=== PATIENT | female | born 1990 | race Caucasian/White ===

== ENCOUNTER 2017-11-16 05:43 | Day surgery (SDC) | payer BC, SELFPAY ==
--- NOTE | 2017-11-10 09:54 | EKG12_ITS ---
Test Reason : PRE OP Blood Pressure : / mmHG Vent. Rate : 066 BPM Atrial Rate : 066 BPM P-R Int : 144 ms QRS Dur : 090 ms QT Int : 382 ms P-R-T Axes : 050 081 057 degrees QTc Int : 400 ms Normal sinus rhythm Normal ECG Confirmed by CAROLYNE HERNANDEZ ([id number]), index editor FESTUS BUSTILLOS ([id number]) on 11/12/2017 12:11:00 PM Referred By: Arnoldo Simon Confirmed By:CAROLYNE HERNANDEZ
[2017-11-10 10:57] LABS: Hematocrit 40.6 % (37-47); Mean Corp Hgb Conc 34.5 g/gl (32-36); Mean Corpuscular Hgb 31.9 pg (27.0-32.0); Mean Corpuscular Volume 92.5 fL (81-99); Mean Platelet Vol. 10.9 fl (6.2-12.0); Platelet Count 216 K/mm3 (150-450); RBC Distribution Width CV 12.9 % (11.6-14.6); RBC Distribution Width SD 42.8 fl (35.1-43.9); Red Blood Count 4.39 M/mm3 (4.2-5.4); White Blood Count 9.2 K/mm3 (4.4-11.0)
[2017-11-10 10:58] LABS: Scan Indicated on CBC? Y/N NO
[2017-11-10 11:03] LABS: International Normalized Ratio 1.1; Prothrombin Time (Protime)PT. 13.8 SECONDS (11.7-14.9)
[2017-11-10 11:04] LABS: Partial Thromboplast Time 28.6 Seconds (24.1-36.2)
[2017-11-10 11:39] LABS: AST(SGOT) 16 U/L (15-37); Alanine Aminotransfer ALT/SGPT 32 U/L (12-78); Albumin, Serum 4.1 g/dL (3.4-5.0); Alkaline Phosphatase 47 U/L (45-117); Anion Gap 8 (5-15); BUN 12 mg/dL (7-18); BUN/Creat Ratio 18.8 RATIO (10-20); Bilirubin, Direct 0.11 mg/dL (0.00-0.30); Calcium,Total 8.8 mg/dL (8.5-10.1); Chloride 104 mmol/L (98-107); Creatinine, Serum 0.64 mg/dL (0.55-1.02); EST Glomerular Filtration Rate 119 mL/min (>60); Est Glom Filt Rate - Afr Amer 144 mL/min (>60); Globulin 3.2 g/dL (2.2-4.2); Glucose 102 mg/dL (70-110); Potassium 3.6 mmol/L (3.5-5.1); Protein, Total 7.3 g/dL (6.4-8.2); Sodium Level 139 mmol/L (136-145)
[2017-11-16] VITALS (7 sets, daily range): BP systolic 110–118; BP diastolic 59–77; PULSE 71–97; RESP 16–18; TEMP 36.6–37.4; O2SAT 96–99; BMI 25.0
[2017-11-16 06:10] LABS: Internal QC Validated? YES +Cl - CLEAR BKGD; Pregnancy, Urine Negative Negative
--- NOTE | 2017-11-16 07:09 | PCM.DC.GS ---
Discharge Diet: Light diet - advance as tolerated - if you have questions about your diet instructions, please talk to you doctor. Discharge Activity: May Not Drive - for 1 week or while taking narcotic pain medicine. May shower in (days): 1 Lifting Restrictions: 10 pounds Call your doctor if your incision/area has: Continuous Slow Oozing, Sudden Increased Bleeding, Increased Pain/ Swelling, Increased Redness, Foul Smelling Discharge Call your doctor if you observe: Fever of 101 or Higher Suture Line Care: Avoid Pulling/Pushing, Avoid Pinching/Bending Additional Dressing/Incision Instructions:: Change or remove dressing in 4 days. Leave steri-strips in place for 1 week. Allergies/Adverse Reactions: Allergies No Known Allergies Allergy (Verified 11/09/17 13:00) Medications to take at Discharge Hydrocodone Bitart/Apap 5-325 [[place] 5MG-325MG] 1 tablet PO Q6H PRN PRN #10 tablet 11/16/17 The following prescriptions were given: Hydrocodone Bitart/Apap 5-325 [[place] 5MG-325MG] 1 tablet PO Q6H PRN PRN #10 tablet PRN Reason: Pain Primary Care Physician: Care Physician,No Primary [Primary Care Provider] - Please Follow Up With: Arnoldo Simon MD - [phone] When: Call to make an appointment to be seen in about 10 days.
[2017-11-16] MEDS: Cefazolin 2 GM in 0.9% Normal Saline 100 ML IV (07:12)
--- NOTE | 2017-11-16 07:30 | MISC_PTH ---
PATIENT: MARVA BANERJEE LOC: [facility] [place] U#:[id number] AGE/SX: 27/F ROOM: RE11/16/[address]: Dr. Arnoldo Simon MD : 1990 BED: DIS: 11/16/2017 SPEC #: [id number] RECD: 11/16/17 10:05 STATUS: KARIN GLEZ #: [id number] CAMILO: 11/16/17 07:[address]: Arnoldo Simon DEPT: SURGICAL PATHOLOGY RECD BY: Hernando Goodwin ENTERED: 11/16/17 12:31 SP [facility]: No Primary Care Phys Tissues: Ligament, NOS Procedures: Surgery Specimen Level IV HEADER OPERATION: Right inguinal hernia repair with mesh PRE-OP DIAGNOSIS: Right inguinal hernia without obstruction or gangrene TISSUE SUBMITTED: Round ligament tissue MICROSCOPIC DIAGNOSIS Round ligament, excision: Fibrous tissue with associated organizing blood clot. AM:jr 11/17/17 MICROSCOPIC DESCRIPTION Slides are reviewed. GROSS DESCRIPTION Received in fixative is one container labeled with the patient's name and designated round ligament tissue. The specimen consists of an elongated fragment of reddish-champion soft tissue measuring 1.2 x 0.2 x 0.1 cm. The specimen is totally submitted in one cassette. / AM:jr 11/16/17 TC:5 CPT: 12214
--- NOTE | 2017-11-16 08:24 | PCM.OPRPT ---
Problem List (1) Inguinal hernia Status: Acute Qualifiers: Obstruction and gangrene presence: without obstruction or gangrene Laterality: unilateral Recurrence: non-recurrent Qualified Code(s): K40.90 - Unilateral inguinal hernia, without obstruction or gangrene, not specified as recurrent Report of Operation Date of Procedure: 11/16/17 Pre-Operative Diagnosis: Right inguinal hernia Post-Operative Diagnosis: Indirect right inguinal hernia Surgery/Procedure Performed:: Hari right inguinal herniorrhaphy Description of Surgical Findings:: Timeout and informed consent was obtained. 27-year-old female was taken out from placement table underwent general anesthesia. Ancef 2 g given intravenously preoperatively. The right groin was sterilely prepped and draped. 1% lidocaine mixed 50-50 with 0.5% Marcaine was used as local anesthetic. A total 20 cc was used. Local was instilled. Transverse incision made in the right groin. Sharp dissection was carried down through the substance tissue. The external oblique identified and incised along its fascia. The inguinal nerve identified and protected. The round ligament was identified. From the transversalis fascia pubic tubercle. It is dissected free the internal ring. Further dissection revealed an indirect inguinal hernia. I dissected free the inguinal nerve. I ligated the round ligament distally with 2-0 Vicryl. Approximated the same and then dissected free the internal ring inverted the round ligament tissue. I used a 3-0 Ethibond starting at the pubic tubercle running the transversalis fascia to itself so as to obliterate the internal ring. Then used a piece of Bard mesh appreciate monofilament polypropylene. Preshaped H[employer]Image. Lot number [id number]. Reference #[id number]. Expiry date 07/16/2022. I trimmed it to size. I then placed around the internal ring and secured its to itself with 3-0 Ethibond. I secured it to the pubic tubercle shelving edge of Poupart's and inguinal nerve ligament with interrupted 3-0 Ethibond. There was very nice coverage of the area. I approximated the external oblique with a running 2-0 Vicryl. Skin edges approximated with running septic or 4-0 Monocryl. Steri-Strips Telfa and OpSite dressings applied. Sponge instrument and needle counts were reported the surgeon for correct. Blood loss was minimal. There was a small amount of darkish debris that came off the round ligament. I did submit that for analysis looking to see if it perhaps represented endometriosis. Specimens included this small portion of round ligament. Drains none. Blood loss minimal. Arnoldo Simon M.D., F.A.C.S.
== END 2017-11-16 10:11 | disposition home or self-care (01) ==
LOC: SDC 05:43 → AC 05:44
PROVIDERS: Anesthesiology; Visit Provider Surgery
PROC: (CPT 49505; principal; 2017-11-16 07:15)
DX: K40.90 Unilateral inguinal hernia, without obstruction or gangrene, not specified as recurrent (principal); K21.9 Gastro-esophageal reflux disease without esophagitis; K44.9 Diaphragmatic hernia without obstruction or gangrene; F17.210 Nicotine dependence, cigarettes, uncomplicated
CPT/HCPCS: 49505; 36415; 80048; 80076; 81025; 85027; 85610; 85730; 88305; 93005; J7120; C1781; J2405

== ENCOUNTER → 2018-01-08 09:23 | Outpatient (CLI) | payer BC, SELFPAY ==
[2018-01-08 10:31] LABS: Anion Gap 6 (5-15); BUN 20 mg/dL (7-18); BUN/Creat Ratio 36.5 RATIO (10-20); Calcium,Total 8.4 mg/dL (8.5-10.1); Chloride 107 mmol/L (98-107); Cholesterol 123 mg/dL (200); Creatinine, Serum 0.55 mg/dL (0.55-1.02); EST Glomerular Filtration Rate 142 mL/min (>60); Est Glom Filt Rate - Afr Amer 172 mL/min (>60); Glucose 89 mg/dL (74-106); High Density Lipoprotein 55 mg/dL; Potassium 4.1 mmol/L (3.5-5.1); Sodium Level 140 mmol/L (136-145); Triglycerides 38 mg/dL; Very Low Density Lipoprotein 8 mg/dL (5-40)
== END ==
PROVIDERS: Family Provider Family Medicine; PCP Family Medicine; Visit Provider Family Medicine
DX: Z00.00 Encounter for general adult medical examination without abnormal findings (principal)
CPT/HCPCS: 36415; 80048; 80061

== ENCOUNTER → 2018-01-18 12:23 | Outpatient (CLI) | payer BC, SELFPAY ==
--- NOTE | 2018-01-18 13:01 | CT_ITS ---
STUDY: CT ABDOMEN AND PELVIS WITH CONTRAST REASON FOR EXAM: Female, 27 years old. RT GROIN PAIN X 2 DAYS, RT INGUINAL HERNIA REPAIR 11/16/17, HAS IUD RADIATION DOSAGE (If Supplied By Facility): CTDIvol = ( 9.93 ) mGy, DLP = ( 485.69 ) mGycm TECHNIQUE: Transaxial images were obtained from the dome of the diaphragm to the symphysis pubis without oral contrast. 100 ml of Isovue 300 contrast was administered. Sagittal and coronal images were reconstructed. Individualized dose optimization techniques were used for this CT. COMPARISON: None. FINDINGS: The visualized lung bases are unremarkable. The visualized portions of the heart are within normal limits. Normal liver. Normal gallbladder and extrahepatic biliary system. Normal spleen. Normal pancreas. Normal bilateral adrenal glands. Normal right kidney. Normal left kidney. Normal visualized stomach. Normal small intestine. Normal colon. The appendix is visualized and appears normal. Normal abdominal aorta. Normal inferior vena cava. Normal retroperitoneum. Normal urinary bladder. Normal abdominal wall. Normal osseous structures. CT/Abdomen/Pelvis WITH Contrast IMPRESSION: Normal enhanced CT of the abdomen and pelvis. Electronically Signed: Adalberto Sandoval MD at 15:35 EDT Tel , Service support ,
[2018-01-18 13:16] LABS: Absolute Lymphocyte Count 1.87 X10^3/ul (0.83-4.51); Absolute Neutrophil Count 4.7 X10^3/uL (2.0-7.7); Basophil# 0.01 X10^3/uL; Basophil% 0.1 % (0-1); Eosinophil# 0.21 X10^3/uL; Eosinophils% 2.7 % (0-5); Hematocrit 40.7 % (37-47); Hemoglobin 13.6 g/dl (12.0-15.0); Lymphocyte # 1.87 X10^3/ul (4.0); Lymphocyte % 24.3 % (19-41); Mean Corp Hgb Conc 33.4 g/gl (32-36); Mean Corpuscular Hgb 31.4 pg (27.0-32.0); Mean Platelet Vol. 10.7 fl (6.2-12.0); Monocyte% 11.7 % (0-10); Neutrophil # 4.69 X10^3/uL (2.7-7.7); Neutrophil % 61.1 % (47-70); Platelet Count 178 K/mm3 (150-450); RBC Distribution Width CV 12.5 % (11.6-14.6); RBC Distribution Width SD 42.1 fl (35.1-43.9); Red Blood Count 4.33 M/mm3 (4.2-5.4); White Blood Count 7.7 K/mm3 (4.4-11.0)
[2018-01-18 13:20] LABS: POSITIVE COUNT NO; POSITIVE DIFFERENTIAL NO; POSITIVE MORPHOLOGY NO
[2018-01-18 13:50] LABS: ALB/GLOB Ratio 1.3 RATIO (0.9-2.4); AST(SGOT) 15 U/L (15-37); Alanine Aminotransfer ALT/SGPT 18 U/L (13-56); Albumin, Serum 3.9 g/dL (3.2-5.0); Alkaline Phosphatase 35 U/L (45-117); Anion Gap 7 (5-15); BUN 15 mg/dL (7-18); BUN/Creat Ratio 28.6 RATIO (10-20); Calcium,Total 8.5 mg/dL (8.5-10.1); Chloride 108 mmol/L (98-107); Creatinine, Serum 0.52 mg/dL (0.55-1.02); EST Glomerular Filtration Rate 149 mL/min (>60); Est Glom Filt Rate - Afr Amer 181 mL/min (>60); Globulin 2.9 g/dL (2.2-4.2); Glucose 102 mg/dL (74-106); Potassium 4.3 mmol/L (3.5-5.1); Protein, Total 6.8 g/dL (6.4-8.2); Sodium Level 142 mmol/L (136-145)
== END ==
PROVIDERS: Family Provider Family Medicine; PCP Family Medicine; Visit Provider Family Medicine
DX: R10.9 Unspecified abdominal pain (principal)
CPT/HCPCS: 36415; 74177; 80053; 85025; Q9967

== ENCOUNTER → 2018-09-24 11:06 | Outpatient (CLI) | payer OTHER, SELFPAY ==
[2017-11-16 06:12] VITALS: BMI 25.0
[2018-09-24 12:36] LABS: Cholesterol 121 mg/dL (200); Glucose 77 mg/dL (74-106); High Density Lipoprotein 43 mg/dL; Triglycerides 63 mg/dL; Very Low Density Lipoprotein 13 mg/dL (5-40)
== END ==
PROVIDERS: Family Provider Family Medicine; PCP Family Medicine; Visit Provider Family Medicine
DX: Z00.00 Encounter for general adult medical examination without abnormal findings (principal)
CPT/HCPCS: 36415; 80061; 82947

== ENCOUNTER → 2019-06-17 14:07 | Outpatient (CLI) | payer OTHER, SELFPAY ==
[2019-06-17 16:16] LABS: CRP < 2.90 mg/L (0.0-3.0)
[2019-06-17 17:32] LABS: Hemoglobin 13.5 g/dL (12.0-15.0); Mean Corp Hgb Conc 32.9 g/dL (32-36); Mean Corpuscular Volume 94.3 fL (81-99); Mean Platelet Vol. 11.7 fl (6.2-12.0); Platelet Count 192 K/mm3 (150-450); RBC Distribution Width CV 12.1 % (11.6-14.6); RBC Distribution Width SD 42.4 fl (35.1-43.9); Red Blood Count 4.35 M/mm3 (4.2-5.4); White Blood Count 8.1 K/mm3 (4.4-11.0)
[2019-06-17 18:18] LABS: Erythrocyte Sedimentation Rate 3 mm/hr (0-20)
[2019-06-21 16:08] LABS: Endomysial Antibody IgA Negative (Negative); Immunoglobulin A 235 mg/dL (87-352); t-Transglutaminase IgA <2 U/mL (0-3)
== END ==
PROVIDERS: Family Provider Family Medicine; PCP Family Medicine; Referring Provider Internal Medicine Gastroenterology; Visit Provider Internal Medicine Gastroenterology
DX: R10.9 Unspecified abdominal pain (principal)
CPT/HCPCS: 36415; 82784; 83516; 85027; 85652; 86140; 86255

== ENCOUNTER → 2019-07-05 09:51 | Outpatient (CLI) | payer OTHER, SELFPAY ==
[2017-11-16 06:12] VITALS: BMI 25.0
--- NOTE | 2019-07-05 10:00 | RAD_ITS ---
PROCEDURE: SMALL BOWEL SERIES DATE OF EXAMINATION: July 05, 2019. INDICATION: Female, 29 years old. Constipation and diarrhea intermittently. PHYSICIAN: Jose Carlos Aviles M.D. FLUOROSCOPY TIME (if supplied): (0:13) minutes/seconds TECHNIQUE: Radiographic and fluoroscopic images were taken of the small intestine following the ingestion of barium. COMPARISON: None. FINDINGS: A preliminary supine KUB was obtained. There is an unremarkable bowel gas pattern. Fecal material is present throughout the colon. IUD is present within the pelvis. The lung bases are unremarkable. The osseous structures are normal. The patient orally ingested approximately 12 ounces of thin barium Normal visualized fundus, body, and antrum of the stomach. Normal duodenal bulb, C-loop, and proximal jejunum. Normal visualized mucosal folds of the jejunum and ileum. There are no demonstrated dilatations, strictures, or masses of the small intestine. There is no mass displacement of the loops of small intestine. There is a normal motor pattern with barium reaching the colon within approximately 30 minutes. Spot films under fluoroscopic observation demonstrated a normal terminal ileum and ileocecal valve. RAD/Small Bowel Series Only IMPRESSION: Normal small bowel series. Electronically Signed: Jose Carlos Aviles, at 9:39 EDT , Service support ,
== END ==
PROVIDERS: Family Provider Family Medicine; PCP Family Medicine; Referring Provider Internal Medicine Gastroenterology; Visit Provider Internal Medicine Gastroenterology
DX: R10.9 Unspecified abdominal pain (principal)
CPT/HCPCS: 74250

== ENCOUNTER → 2019-08-19 09:38 | Outpatient (CLI) | payer OTHER, SELFPAY ==
[2019-08-12 09:16] VITALS: BMI 25.0
--- NOTE | 2019-08-19 09:40 | CT_ITS ---
STUDY: CT ABDOMEN AND PELVIS WITH CONTRAST REASON FOR EXAM: Female, 29 years old. Abdominal pain. Change in bowel pattern. RADIATION DOSAGE (If Supplied By Facility): CTDIvol = ( 16.49 ) mGy, DLP = ( 633.62 ) mGycm TECHNIQUE: Transaxial images were obtained from the dome of the diaphragm to the symphysis pubis with oral contrast. Oral and amp;amp; IV Readi-CAT and amp;amp; 100mL Isovue-300 100 was administered. Sagittal and coronal images were reconstructed. Individualized dose optimization techniques were used for this CT. COMPARISON: Comparison is made with prior examination dated January 18, 2018. FINDINGS: The visualized lung bases are unremarkable. The visualized portions of the heart are within normal limits. Normal liver. Normal gallbladder and extrahepatic biliary system. Normal spleen. Normal pancreas. Normal bilateral adrenal glands. Normal right kidney. Normal left kidney. There is a small hiatal hernia. Normal small intestine. Normal colon. The appendix is visualized and appears normal. Normal abdominal aorta. Normal inferior vena cava. Normal retroperitoneum. Normal urinary bladder. Small follicles are seen in the left ovary. An IUD is seen within the uterus. Normal abdominal wall. Normal osseous structures. CT/Abdomen/Pelvis WITH Contrast IMPRESSION: Small follicles are seen within the left ovary. IUD within the uterus. Electronically Signed: Jose Carlos Aviles, at 14:38 EDT , Service support ,
== END ==
PROVIDERS: Family Provider Family Medicine; PCP Family Medicine; Referring Provider Surgery; Visit Provider Surgery
DX: R19.4 Change in bowel habit (principal); R10.9 Unspecified abdominal pain
CPT/HCPCS: 74177; Q9967

== ENCOUNTER → 2019-10-11 09:02 | Outpatient (CLI) | payer OTHER, SELFPAY ==
[2019-08-26 14:06] VITALS: BMI 25.0
[2019-10-11 10:30] LABS: Anion Gap 3 (5-15); BUN 14 mg/dL (7-18); BUN/Creat Ratio 21.6 RATIO (10-20); Calcium,Total 8.6 mg/dL (8.5-10.1); Chloride 106 mmol/L (98-107); Cholesterol 125 mg/dL (200); Creatinine, Serum 0.65 mg/dL (0.55-1.02); EST Glomerular Filtration Rate 115 mL/min (>60); Est Glom Filt Rate - Afr Amer 140 mL/min (>60); Glucose 91 mg/dL (74-106); High Density Lipoprotein 54 mg/dL; Potassium 4.4 mmol/L (3.5-5.1); Sodium Level 138 mmol/L (136-145); Triglycerides 61 mg/dL; Very Low Density Lipoprotein 12 mg/dL (5-40)
== END ==
PROVIDERS: Family Provider Family Medicine; PCP Family Medicine; Visit Provider Family Medicine
DX: Z00.00 Encounter for general adult medical examination without abnormal findings (principal)
CPT/HCPCS: 36415; 80048; 80061

== ENCOUNTER 2020-03-11 11:33 | Emergency (ER) | payer OTHER, SELFPAY ==
[2019-08-26 14:06] VITALS: BMI 25.0
[2020-03-11 11:34] VITALS: BP 142/94; PULSE 95; RESP 22; TEMP 34.9; O2SAT 100; BMI 28.8
--- NOTE | 2020-03-11 11:50 | RAD_ITS ---
STUDY: X-RAY CHEST REASON FOR EXAM: Female, 29 years old. COUGH, SOB, CHEST TIGHTNESS X 1 WEEK -- pt 8 weeks , TECHNIQUE: Single AP portable view of the chest. COMPARISON: None. FINDINGS: There are monitoring devices. The lungs are clear and expanded. There is no demonstrated pleural abnormality. Normal size heart. Normal mediastinum and heather. Normal visualized pulmonary arteries. Normal visualized aortic arch and descending thoracic aorta. Normal visualized thoracic spine. Normal visualized ribs, clavicles, and shoulders. There is no demonstrated abnormality of the visualized soft tissue structures of the upper abdomen. RAD/Chest 1 View (Portable) IMPRESSION: Normal x-ray examination of the chest. Electronically Signed: Rad Damon MD at 13:00 EDT , Service support ,
--- NOTE | 2020-03-11 11:50 | EKG12_ITS ---
Test Reason : Blood Pressure : / mmHG Vent. Rate : 087 BPM Atrial Rate : 087 BPM P-R Int : 182 ms QRS Dur : 084 ms QT Int : 376 ms P-R-T Axes : 046 053 026 degrees QTc Int : 452 ms Normal sinus rhythm with sinus arrhythmia Normal ECG Confirmed by VINI NOLASCO, LUC ([id number]), publishing editor FESTUS BUSTILLOS ([id number]) on 03/13/2020 3:18:55 PM Referred By: LANA Confirmed By:LUC MARTINI MD
--- NOTE | 2020-03-11 11:57 | ED.DCSUM_ITS ---
History of Present Illness Chief Complaint: Shortness of Breath Informant: Patient Onset: Days - 2 days Current Severity: Mild Maximum Severity: Mild Narrative: Patient presents with 2-day history of shortness of breath and cough. She states her lungs feel tight. She is currently 8 weeks . 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 She does report a couple positive Covid patients they have had in the last several weeks. She denies fever or chills. She does not feel as if she is wheezing. - Past Medical History (1) GERD (gastroesophageal reflux disease) Status: Chronic (2) S/P right inguinal hernia repair Status: Chronic Comment: 11/16/17 Past Medical History - Allergies and Home Meds Allergies/Adverse Reactions: Allergies No Known Allergies Allergy (Verified 03/11/20 11:36) Primary Care Physician: Quinton Blackburn MD [Primary Care Provider] - Prior records reviewed: Yes Lives: With Family Smoking Status: Current every day smoker Review of Systems General: Denies: Chills, Fever Eyes: Denies: Visual changes - bilaterally ENT: Denies: Bilateral ear pain Cardiovascular: Reports: - - Chest feels tight. Denies: Chest pain Respiratory: Reports: Dyspnea, Cough. Denies: Sputum Gastrointestinal: Reports: Nausea - Some nausea associated with her . Denies: Abdominal pain, Vomiting Genitourinary: Denies: Dysuria Musculoskeletal: Denies: Swelling, Extremity Pain Skin: Denies: Rash Neurological: Denies: Headache Hematologic: Denies: Easy bruising, Easy bleeding Allergy: Denies: Uticaria Physical Exam Vital Signs/Narrative: Vital Signs Temp Pulse Resp BP Pulse Ox 03/11/20 11:34 94.9 F L 95 22 H 142/94 H 100 Inital Vital Signs reviewed: Yes General: Well nourished, Well developed Head: Normocephalic ENT: Moist mucous membranes Neck: Supple Cardiovascular: Regular rate, Regular rhythm Respiratory: No distress, CTA bilaterally Abdomen: Soft, Nontender Extremities: Nontender Skin: Normal color, No rash Neurological: Alert, Oriented x3 Psychological: Normal affect Diagnostic/Tx/Re-eval Impressions Chest X-Ray 03/11/20 11:50 IMPRESSION: Normal x-ray examination of the chest. Electronically Signed: Rad Damon MD at 13:00 EDT , Service support , 03/11/20 11:50 Chest 1 View (Portable) [RAD] Stat Laboratory Results 03/11/20 03/11/20 03/11/20 12:05 12:05 12:05 WBC 10.8 RBC 4.12 L Hgb 12.9 Hct 38.4 MCV 93.2 MCH 31.3 MCHC 33.6 RDW Std Deviation 41.1 RDW Coeff of Beulah 12.0 Plt Count 163 MPV 10.3 Immature Gran % (Auto) 0.400 Neut % (Auto) 76.2 H Lymph % (Auto) 14.6 L [place] % (Auto) 7.4 Eos % (Auto) 1.2 Baso % (Auto) 0.2 Absolute Neuts (auto) 8.2 H Absolute Lymphs (auto) 1.57 Nucleated RBC % 0 D-Dimer Quant (PE/DVT) 0.33 Sodium 138 Potassium 3.8 Chloride 109 H Carbon Dioxide 24.0 Anion Gap 5 BUN 9 Creatinine 0.44 L Estim Creat Clear Calc 164.38 Est GFR (MDRD) Af Amer 215 Est GFR (MDRD) Non-Af 178 BUN/Creatinine Ratio 20.2 H Glucose 120 H Calcium 8.5 Troponin I < 0.015 TSH 0.87 - EKG Initial EKG Interpretation: Sinus Rhythm - Sinus at 87 with sinus arrhythmia. No acute ischemia. - Medical Decision Making Patient was observed on dog licenser throughout her ED stay. Heart rate and other vital signs remained stable. Covid test was sent and is currently pending. It was run at this hospital although I had called [facility] for permission. Test results should be back within the next 2 hours and patient will be called with the results. Patient is comfortable with this plan. ED Disposition - Plan for ED Patient: Disposition: Home or Assisted Living Diagnosis: Dyspnea Instructions: ED Dyspnea Referrals: Quinton Blackburn MD [Primary Care Provider] - 3-5 Days
[2020-03-11 12:03] VITALS: O2SAT 98
[2020-03-11 12:12] LABS: Absolute Lymphocyte Count 1.57 X10^3/uL (0.83-4.51); Absolute Neutrophil Count 8.2 X10^3/uL (2.0-7.7); Basophil# 0.02 X10^3/uL; Basophil% 0.2 % (0-1); Eosinophil# 0.13 X10^3/uL; Eosinophils% 1.2 % (0-5); Hematocrit 38.4 % (37-47); Hemoglobin 12.9 g/dL (12.0-15.0); Lymphocyte # 1.57 X10^3/ul (4.0); Lymphocyte % 14.6 % (19-41); Mean Corp Hgb Conc 33.6 g/dL (32-36); Mean Corpuscular Hgb 31.3 pg (27.0-32.0); Mean Corpuscular Volume 93.2 fL (81-99); Mean Platelet Vol. 10.3 fl (6.2-12.0); Monocyte% 7.4 % (0-10); NRBC Flagged by Analyzer 0 % (0-5); Neutrophil # 8.21 X10^3/uL (2.7-7.7); Neutrophil % 76.2 % (47-70); Platelet Count 163 K/mm3 (150-450); RBC Distribution Width SD 41.1 fl (35.1-43.9); Red Blood Count 4.12 M/mm3 (4.2-5.4); White Blood Count 10.8 K/mm3 (4.4-11.0)
[2020-03-11 12:20] LABS: D-Dimer Quantitative (DVT/PE) 0.33 FEU/ug/m (0.27-0.49)
[2020-03-11 12:30] VITALS: BP 128/93; PULSE 87; RESP 15; O2SAT 98
[2020-03-11 12:34] LABS: Anion Gap 5 (5-15); BUN 9 mg/dL (7-18); BUN/Creat Ratio 20.2 RATIO (10-20); Calcium,Total 8.5 mg/dL (8.5-10.1); Chloride 109 mmol/L (98-107); Creatinine, Serum 0.44 mg/dL (0.55-1.02); EST Glomerular Filtration Rate 178 mL/min (>60); Est Glom Filt Rate - Afr Amer 215 mL/min (>60); Estimated Creatinine Clearance 164.38 ml/min; Glucose 120 mg/dL (74-106); Potassium 3.8 mmol/L (3.5-5.1); Sodium Level 138 mmol/L (136-145); Thyroid Stim Hormone (TSH) 0.87 uIU/mL (0.358-3.74)
[2020-03-11 13:27] VITALS: BP 124/79; PULSE 73; RESP 18; O2SAT 98
--- NOTE | 2020-03-11 13:28 | ED.RN ---
THIS NURSE REVIEWED D/C INSTRUCTIONS WITH PT. PT VERBALIZED UNDERSTANDING OF INSTRUCTIONS. IV D/C. IV CATHETER INTACT. PT TOLERATED WELL. PT DENIES FURTHER NEEDS OR QUESTIONS AT THIS TIME.
== END 2020-03-11 13:29 | disposition home or self-care (01) ==
PROVIDERS: Emergency Provider Emergency Medicine; PCP Family Medicine
DX: O26.891 Other specified pregnancy related conditions, first trimester (principal); R06.00 Dyspnea, unspecified; O99.331 Smoking (tobacco) complicating pregnancy, first trimester; F17.200 Nicotine dependence, unspecified, uncomplicated; Z3A.08 8 weeks gestation of pregnancy
CPT/HCPCS: 71045; 80048; 84443; 84484; 85025; 85379; 87635; 93005; 99284; G2023; A4216; U0004

== ENCOUNTER → 2020-05-07 09:40 | Outpatient (CLI) | payer OTHER, SELFPAY | PROVIDERS: PCP Family Medicine | DX: Z00.00 Encounter for general adult medical examination without abnormal findings (principal) | CPT/HCPCS: 87635; C9803; G2023; U0003 ==

== ENCOUNTER → 2021-08-27 10:13 | Outpatient (CLI) | payer OTHER, SELFPAY ==
[2021-08-27 12:36] LABS: Cholesterol 150 mg/dL (200); High Density Lipoprotein 46 mg/dL; Triglycerides 115 mg/dL; Very Low Density Lipoprotein 23 mg/dL (5-40)
== END ==
PROVIDERS: PCP Family Medicine; Referring Provider Family Medicine; Visit Provider Family Medicine
DX: E78.5 Hyperlipidemia, unspecified (principal)
CPT/HCPCS: 36415; 80061

== ENCOUNTER → 2022-03-20 | Outpatient (CLI) | payer SELFPAY ==
[2022-03-27 12:09] LABS: HSV 1 By PCR Negative (Negative)
[2022-03-28 17:17] LABS: HSV 2 By PCR Negative (Negative)
== END | disposition home or self-care (01) ==
PROVIDERS: PCP Family Medicine; Visit Provider Family Medicine
DX: Z20.828 Contact with and (suspected) exposure to other viral communicable diseases (principal)
CPT/HCPCS: 36415; 87529

== ENCOUNTER → 2022-04-02 | Outpatient (CLI) | payer OTHER, SELFPAY ==
[2022-04-04 16:34] LABS: HSV 2 IgG < 0.91 index (0.00-0.90)
== END | disposition home or self-care (01) ==
LOC: MFPLAB 11:37
PROVIDERS: PCP Family Medicine; Referring Provider Family Medicine; Visit Provider Family Medicine
DX: A64 Unspecified sexually transmitted disease (principal)
CPT/HCPCS: 36415; 86695; 86696

== ENCOUNTER 2023-03-27 08:03 | Outpatient (CLI) | payer OTHER, SELFPAY | END 2023-03-27 23:59 | disposition home or self-care (01) | LOC: PSN 08:06 | PROVIDERS: PCP Family Medicine; Referring Provider Family Medicine; Visit Provider Family Medicine | DX: R03.1 Nonspecific low blood-pressure reading (principal); Z82.0 Family history of epilepsy and other diseases of the nervous system | CPT/HCPCS: 95819 ==

== ENCOUNTER → 2024-09-08 | Outpatient (CLI) | payer OTHER, SELFPAY ==
[2024-09-08 15:24] LABS: Anion Gap 2 (5-15); BUN 18 mg/dL (7-18); BUN/Creat Ratio 33.7 RATIO (10-20); Calcium,Total 8.6 mg/dL (8.5-10.1); Chloride 109 mmol/L (98-107); Cholesterol 149 mg/dL (200); Creatinine, Serum 0.53 mg/dL (0.55-1.02); EST Glomerular Filtration Rate 140 mL/min (>60); Est Glom Filt Rate - Afr Amer 169 mL/min (>60); Glucose 91 mg/dL (74-106); High Density Lipoprotein 61 mg/dL; Potassium 4.2 mmol/L (3.5-5.1); Sodium Level 138 mmol/L (136-145); Triglycerides 79 mg/dL; Very Low Density Lipoprotein 16 mg/dL (5-40)
== END | disposition home or self-care (01) ==
LOC: MFPLAB 12:03
PROVIDERS: PCP Family Medicine; Visit Provider Family Medicine
DX: Z00.00 Encounter for general adult medical examination without abnormal findings (principal)
CPT/HCPCS: 36415; 80048; 80061

== ENCOUNTER 2025-03-15 11:00 | Emergency (ER) | payer OTHER, SELFPAY ==
[2025-03-15] VITALS (14 sets, daily range): BP systolic 112–141; BP diastolic 78–96; PULSE 66–82; RESP 13–24; TEMP 36.7; O2SAT 97–100; BMI 27.3
--- NOTE | 2025-03-15 11:39 | EKG12_ITS ---
Test Reason : CP Blood Pressure : */* mmHG Vent. Rate : 78 BPM Atrial Rate : 78 BPM P-R Int : 130 ms QRS Dur : 82 ms QT Int : 354 ms P-R-T Axes : 44 65 49 degrees QTcB Int : 403 ms Normal sinus rhythm with sinus arrhythmia Normal ECG Confirmed by ZACK GILMAN ([id number]), movie editor YISSEL MONTANEZ ([id number]) on 03/20/2025 8:04:50 AM Referred By: Confirmed By: ZACK GILMAN
--- NOTE | 2025-03-15 11:41 | ED.VIS.CHEST ---
HPI History of Present Illness Chief Complaint: Chest Pain Narrative Narrative: Chief complaint and HPI: Episodic chest tightness and shortness of breath. 34-year-old female with past medical history of depression and anxiety not on medication, GERD presents for evaluation of episodic chest tightness and shortness of breath. Patient states that she has been under a a lot of stress lately as she is going through a divorce, child is inducing self-harm tendencies, and family member is in ICU. She endorses insomnia. Patient states for the past 3 weeks she has been having episodic chest tightness and shortness of breath. Describes it as tight and occasionally sharp. People at work told her to be evaluated which is why she presents today. She denies any fever, chills, URI symptoms, abdominal pain, nausea, vomiting. Denies a history of DVT/PE, blood clotting disorder, recent trauma or surgery, unilateral leg swelling, known malignancy, travel. Denies possibility of and she states she is not sexually active as she is going through a divorce. Review of systems: See HPI Medications: As listed on the chart Allergies: As listed on the chart PFSH: Per chart Vital signs: As listed on the chart. Reviewed. Physical exam: Gen: A&O x3, NAD but anxious Head: Normocephalic, atraumatic Eyes: No sclera icterus, conjunctiva clear ENT: Moist mucous membranes Neck: Trachea midline, No JVD CV: RRR, no murmurs, no peripheral edema Resp: Lungs CTA BL, no w/r/c GI: Abd soft, non-distended, non-tender, no r/r/g Musc: Full ROM, no deformity Skin: Warm, dry Neuro: Alert, oriented, grossly intact, sensation intact Psych: Cooperative, anxious [facility] Medical History (Updated 03/15/25 @ 15:[address] Obinna Styles, DO) History of change in bowel patterns GERD (gastroesophageal reflux disease) Abdominal pain Inguinal hernia Home Medications ?Medication ?Instructions ?Recorded ?Last Taken ?Type NK 11/26/17 Unknown History Allergy/AdvReac Type Severity Reaction Status Date / Time No Known Allergies Allergy Verified 03/15/25 11:02 Family History Grandfather Colon cancer Father Colon cancer Surgical History (Updated 03/11/20 @ 11:[address] Torrie Alanis MD) S/P right inguinal hernia repair Social History (Updated 08/26/19 @ 14:[address] Samuel Chiang MD) Smoking Status: Current every day smoker tobacco type: cigarettes alcohol intake: never substance use type: does not use EXAM Physical Exam Const Vital Signs: 03/15/25 11:00 03/15/25 11:01 03/15/25 12:00 Temperature 98.1 F Temperature Source Oral Pulse Rate 71 77 Respiratory Rate 16 13 Respiratory Effort Normal Non-Labored Blood Pressure 140/86 H 141/96 H Blood Pressure Mean 104 111 Pulse Ox 98 100 Oxygen Delivery Method Room Air Room Air 03/15/25 13:00 03/15/25 13:05 03/15/25 13:15 Temperature Temperature Source Pulse Rate 82 66 69 Respiratory Rate 24 H 15 19 H Respiratory Effort Blood Pressure 134/95 H 129/85 H Blood Pressure Mean 108 99 Pulse Ox 97 98 97 Oxygen Delivery Method Room Air 03/15/25 13:30 03/15/25 13:45 03/15/25 14:00 Temperature Temperature Source Pulse Rate 76 Respiratory Rate 23 H Respiratory Effort Blood Pressure 138/83 H 112/89 H 121/85 H Blood Pressure Mean 102 95 98 Pulse Ox 98 Oxygen Delivery Method 03/15/25 14:15 03/15/25 14:30 03/15/25 14:45 Temperature Temperature Source Pulse Rate 71 73 80 Respiratory Rate 19 H 19 H 19 H Respiratory Effort Blood Pressure 126/86 H 130/92 H 136/91 H Blood Pressure Mean 100 104 106 Pulse Ox 98 97 97 Oxygen Delivery Method 03/15/25 15:00 03/15/25 15:15 03/15/25 15:35 Temperature 98.1 F Temperature Source Pulse Rate 73 75 75 Respiratory Rate 18 16 16 Respiratory Effort Blood Pressure 126/83 H 128/78 H 128/78 H Blood Pressure Mean 97 95 94 Pulse Ox 98 97 97 Oxygen Delivery Method MDM MDM MDM Narrative Medical decision making narrative: 34-year-old female with past medical history of depression and anxiety not on medication, GERD presents for evaluation of episodic chest tightness and shortness of breath. Both are episodic and have all been going for 3 weeks. Patient endorses a lot of stress and insomnia secondary to complicated social history. On presentation, patient is in no acute distress but anxious. Physical exam is unremarkable. Differential diagnosis includes but is not limited to stress reaction, anxiety, electrolyte abnormality, anemia, arrhythmia, suspect less likely ACS, PE, pneumonia. Aspirin and Ativan ordered for symptoms. Cardiac workup ordered. EKG reviewed see below. Chest x-ray reviewed see below. CBC without leukocytosis or anemia. D-dimer unremarkable. BMP relatively unremarkable. Troponin negative x 2. TSH unremarkable. Patient is low risk for ACS per the heart score. On reevaluation, patient's symptoms have improved. She is less anxious and more comfortable. At this point in time, no clear etiology for patient's symptoms although suspect that this is possibly related to stress and anxiety. Return precautions explained. Follow-up with PCP. She was updated all the information and confirmed understanding of plan. EKG: Interpreted by me/EM physician: EKG shows normal sinus rhythm with sinus arrhythmia. No acute ischemic changes. Heart rate 70. Diagnostic: Interpreted by me/EM physician: Chest x-ray without pneumonia, effusion, cardiomegaly, pneumothorax. Radiology in agreement. Impression: 1. Chest pain 2. Anxiety Lab Data Labs: Laboratory Results - last 24 hr 03/15/25 03/15/25 11:55 14:20 WBC 7.4 RBC 4.79 Hgb 14.9 Hct 42.4 MCV 88.5 MCH 31.1 MCHC 35.1 RDW Std Deviation 39.0 RDW Coeff of Beulah 11.9 Plt Count 234 MPV 10.3 Immature Gran % (Auto) 0.300 Neut % (Auto) 54.4 Lymph % (Auto) 34.0 [place] % (Auto) 8.8 Eos % (Auto) 1.8 Baso % (Auto) 0.7 Absolute Neuts (auto) 4.1 Absolute Lymphs (auto) 2.52 Nucleated RBC % 0 D-Dimer Quant (PE/DVT) < 0.27 L Sodium 140 Potassium 4.0 Chloride 108 Carbon Dioxide 19.3 L Anion Gap 13 BUN 9 Creatinine 0.58 L Estim Creat Clear Calc 129.49 Est GFR (MDRD) Non-Af 122 BUN/Creatinine Ratio 16.0 Glucose 78 Calcium 9.6 Troponin T High Sens < 6 Troponin T Hi Sens 2 Hr < 6 TSH 0.739 Radiography Diagnostic Testing: Clinical Impression(s) from Imaging Studies Chest X-Ray 03/15/25 12:20 IMPRESSION: No acute cardiopulmonary process. Reading Location: [facility] Discharge Plan Triage Chief Complaint: Chest Pain ED Provider: Obinna Styles Dx/Rx/DC Orders Clinical Impression: Chest pain Instructions: ED Chest Pain, Uncertain Cause Prescriptions: No Action NK Primary Care Provider: Quinton Blackburn Referrals: Quinton Blackburn MD [Primary Care Provider] - 3-5 Days Activity Restrictions/Additional Instructions: At this point in time, no clear reason for your chest pain. Follow-up with your primary care physician. Return back to ED if symptoms change or worsen. May be secondary to anxiety and stress. Print Language: Chinese Disposition Disposition: Home, Self Care Discharge Date/Time: 03/15/25 15:36
[2025-03-15] MEDS: Aspirin 81 MG TAB.CHEW 324 MG PO (11:56)
[2025-03-15] MEDS: Lorazepam 2 MG/ML WCH Syringe 0.5 MG IV (11:56)
[2025-03-15 11:59] LABS: Absolute Lymphocyte Count 2.52 X10^3/uL (0.83-4.51); Absolute Neutrophil Count 4.1 X10^3/uL (2.0-7.7); Basophil# 0.05 X10^3/uL; Basophil% 0.7 % (0-1); Eosinophil# 0.13 X10^3/uL; Eosinophils% 1.8 % (0-5); Hematocrit 42.4 % (37-47); Hemoglobin 14.9 g/dL (12.0-15.0); Lymphocyte # 2.52 X10^3/ul (0.83-4.51); Mean Corp Hgb Conc 35.1 g/dL (32-36); Mean Corpuscular Hgb 31.1 pg (27.0-32.0); Mean Corpuscular Volume 88.5 fL (81-99); Mean Platelet Vol. 10.3 fl (6.2-12.0); Monocyte# 0.65 X10^3/uL; Monocyte% 8.8 % (0-10); NRBC Flagged by Analyzer 0 % (0-5); Neutrophil # 4.05 X10^3/uL (2.7-7.7); Neutrophil % 54.4 % (47-70); Platelet Count 234 K/mm3 (150-450); RBC Distribution Width CV 11.9 % (11.6-14.6); Red Blood Count 4.79 M/mm3 (4.2-5.4); White Blood Count 7.4 K/mm3 (4.4-11.0)
[2025-03-15 12:19] LABS: D-Dimer Quantitative (DVT/PE) < 0.27 FEU/ug/m (0.27-0.49)
--- NOTE | 2025-03-15 12:20 | RAD_ITS ---
EXAM: XR Chest, 2 Views CLINICAL INDICATION: CHEST PAIN TECHNIQUE: Frontal and lateral views of the chest. COMPARISON: No relevant prior studies available. FINDINGS: LUNGS AND PLEURAL SPACES: Unremarkable. No consolidation. No pneumothorax. HEART: Unremarkable. No cardiomegaly. MEDIASTINUM: Unremarkable. Normal mediastinal contour. BONES/JOINTS: Unremarkable. No acute fracture. RAD/Chest PA and Lateral IMPRESSION: No acute cardiopulmonary process. Reading Location: [facility]
[2025-03-15 13:00] LABS: Anion Gap 13 (5-15); BUN 9 mg/dL (4-19); Calcium,Total 9.6 mg/dL (7.6-11.0); Carbon Dioxide 19.3 mmol/L (21.0-32.0); Chloride 108 mmol/L (98-108); Creatinine, Serum 0.58 mg/dL (0.70-1.20); EST Glomerular Filtration Rate 122 (>60); Estimated Creatinine Clearance 129.49 ml/min (50-250); Glucose 78 mg/dL (70-99); Sodium Level 140 mmol/L (133-145); Thyroid Stim Hormone (TSH) 0.739 uIU/mL (0.300-4.200); Troponin T High Sensitivity < 6 ng/L (<=14)
[2025-03-15 15:10] LABS: Troponin T High Sens 2 HR < 6 ng/L (<=14)
== END 2025-03-15 15:36 | disposition home or self-care (01) ==
PROVIDERS: Emergency Provider Surgery; PCP Family Medicine; Visit Provider Surgery
DX: R07.89 Other chest pain (principal); F41.9 Anxiety disorder, unspecified; G47.00 Insomnia, unspecified; R06.02 Shortness of breath; F17.210 Nicotine dependence, cigarettes, uncomplicated
CPT/HCPCS: 71046; 80048; 84443; 84484; 85025; 85379; 93005; 96374; 99284; A4216

== ENCOUNTER → 2025-09-15 | Outpatient (CLI) | payer OTHER, SELFPAY ==
--- OUTSIDE RECORDS SUMMARY | 2025-09-15 09:18 | XMS RPT_ITS | CCD ---
Author Organization [facility] Care Team Providers Care Managing Broker Name Role Phone Saúl Harrell Attending Unavailable Tourlas, Mando Primary Care Unavailabl e Tizzano, Saúl P Admitting Unavailable Tizzano, Saúl P Attending Unavailable Tourlas, Mando Primary Care Unavailabl e Tizzano, Saúl P Admitting Unavailable Tizzano, Saúl P Attending Unavailable Tourlas, Mando Primary Care Unavailabl e Tizzano, Saúl P Attending Unavailable Tourlas, Mando Primary Care Unavailabl e Tizzano, Saúl P Attending Unavailable Tourlas, Mando Primary Care Unavailabl e Tizzano, Saúl P Attending Unavailable Tourlas, Mando Primary Care Unavailabl e Tizzano, Saúl P Attending Unavailable Tourlas, Mando Primary Care Unavailabl e Tizzano, Saúl P Admitting Unavailable Tizzano, Saúl P Attending Unavailable Tourlas, Mando Primary Care Unavailabl e Tizzano, Saúl P Attending Unavailable Tourlas, Mando Primary Care Unavailabl e STEFANIE BUITRAGOM Admitting Unavailable STEFANIE BUITRAGO CNM Primary Care Unavailable STEFANIE BUITRAGO CNM Attending Unavailable BRENDA ROWELL MD Admitting Unavailable BRENDA ROWELL MD Primary Care Unavailable BRENDA ROWELL MD Attending Unavailable BRENDA ROWELL MD Primary Care Unavailable BRENDA ROWELL MD Attending Unavailable BRENDA ROWELL MD Admitting Unavailable Bre Bustillos MD Primary Care Provider BRE BUSTILLOS Primary Care Unavailable Dr. Quinton Blackburn MD Primary Care Provider Dr. Obinna Styles DO Emergency Provider Quinton Blackburn Primary Care Unavailable Quinton Blackburn Attending Unavailable Obinna Styles Attending UnavailQuinton Leone Primary Care Unavailable Allergies Allergy Classification Reported Allergen(s) Allergy Type Date of Onset Reaction(s) Facility (1 source) No Known Medication Allergies; Translations: [No Known Medication Allergies] Propensity to adverse reactions to drug (disorder) [facility] Repository (2 sources) Sulfamethoxazole / Trimethoprim; Translations: [SULFAMETHOXAZOLE-TR IMETHOPRIM] Drug Allergy [facility]-02-20 [facility] Work Phone: Medications Current Medications Medication Drug Class(es) Dates Sig (Normalized) Sig (Original) cephalexin 500 mg oral capsule (1 source) Cephalosporin Antibacterial Start: 08-30-2022 End: 09-09-2022 take 1 capsule by mouth twice daily cephALEXin (KEFLEX) 500 mg capsule Indications: Strep throat Take 1 capsule by mouth twice daily for 10 days. 20 capsule 0 08/30/2022 09/09/2022 Active Comment on above: Take 1 capsule by [facility] twice daily for 10 days. [place] (Nk) (1 source) Start: 11-26-2017 [place] (Nk) Active November 26, 2017 1:00am predniSONE 20 mg oral tablet (1 source) Start: 08-30-2022 End: 09-04-2022 take 2 tablets by mouth once daily predniSONE (DELTASONE) 20 mg tablet Indications: Strep throat Take 2 tablets by mouth once daily for 5 days. 10 tablet 0 08/30/2022 09/04/2022 Active Comment on above: Take 2 tablets by [facility] once daily for 5 days. Completed/Discontinued Medications Medication Drug Class(es) Dates Sig (Normalized) Sig (Original) acetaminophen 325 mg / HYDROcodone bitartrate 5 mg oral tablet (2 sources) Opioid Agonist Start: 11-16-2017 End: 11-26-2017 Hydrocodone-Acetami nophen 1 TABLET tablet Discontinued 1 {tbl} PO EVERY 6 HOURS NEEDED as needed for Pain November 16, 2017 1:00am November 26, 2017 2:24pm Start: 12-29-2016 End: 10-30-2017 Hydrocodone-Acetaminophen 1 TABLET tablet Discontinued 1 - 2 {tbl} PO EVERY 4 HOURS NEEDED as needed for Pain December 29, 2016 12:00am October 30, 2017 12:31pm aspirin 81 mg delayed release oral tablet (1 source) Platelet Aggregation Inhibitor, Nonsteroidal Anti-inflammatory Drug Start: 03-26-2020 take 1 tablet by mouth once daily aspirin, enteric coated (ECOTRIN LOW STRENGTH) 81 mg EC tablet Take 1 tablet by mouth once daily. 0 03/26/2020 Active Comment on above: Take 1 tablet by mouth once daily. Docusate (1 source) docusate sodium (COLACE ORAL) Take by mouth as needed. 0 Active Comment on above: Take by mouth as needed. Lysine (1 source) LYSINE ORAL Take by mouth as needed. 0 Active Comment on above: Take by mouth as needed. Udlmzjnd-Hh-Kko -Fe-FA ( VITAMIN) tab (1 source) take 1 tablet by mouth once Rqryqxry-Vw-Xcw- Fe-FA ( VITAMIN) tab Take 1 tablet by mouth. 0 Active Comment on above: Take 1 tablet by mouth. Problems Active Problems Problem Classification Problem Date Documented Date Episodic/Chronic Abdominal hernia (2 sources) Inguinal hernia; Translations: [Unilateral inguinal hernia, without obstruction or gangrene, not specified as recurrent] 11-26-2017 Episodic Esophageal disorders (2 sources) Gastroesophageal reflux disease; Translations: [Gastro-esophageal reflux disease without esophagitis] 03-11-2020 Chronic Nonspecific chest pain (2 sources) Chest pain; Translations: [Chest pain, unspecified] Onset: 03-22-2025 03-15-2025 Episodic Other lower respiratory disease (2 sources) Dyspnea; Translations: [Dyspnea, unspecified] 03-12-2020 Episodic Other and delivery including normal (3 sources) Encounter for supervision of normal , unspecified, third trimester; Translations: [Encounter for supervision of normal , unspecified, third trimester] Onset: 09-28-2020 Episodic Other upper respiratory infections (2 sources) Sore throat symptom; Translations: [Acute pharyngitis, unspecified] Episodic Residual codes; unclassified (1 source) 36 weeks gestation of ; Translations: [36 weeks gestation of ] Onset: 09-28-2020 Residual codes; unclassified (1 source) 28 weeks gestation of ; Translations: [28 weeks gestation of ] Onset: 08-03-2020 Past or Other Problems Problem Classification Problem Date Documented Da te Episodic/Chronic Other complications of (1 source) History of pre-eclampsia; Translations: [Supervision of with other poor reproductive or obstetric history, unspecified trimester] Onset: 01-08-2013 02-27-2020 Episodic Screening and history of mental health and substance abuse codes (1 source) H/O: depression; Translations: [Personal history of other mental and behavioral disorders] Onset: 02-23-2020 02-23-2020 Episodic Substance-related disorders (1 source) Marijuana user; Translations: [Cannabis use, unspecified, uncomplicated] Onset: 02-29-2020 05-31-2020 Episodic Results Test Name Value Interpretation Reference Range Facility 12 Lead EKGon 03-15-2025 12 Lead EKG [facility] Cardiovascular Services [address] [place] [address] 12 Lead EKG 03/15/25 1111 MR#: [id number] Acct: [id number] Name: DARA HURTADO Rep #: [id number] : 1990 34 From: Zack Porter MD Attending Dr: Status: DEP ER Ordering Dr: Obinna Styles DO Date: 5 Location: ED Sex: F C Admitted: Test Reason : CP Blood Pressure : */* mmHG Vent. Rate : 78 BPM Atrial Rate : 78 BPM P-R Int : 130 ms QRS Dur : 82 ms QT Int : 354 ms P-R-T Axes : 44 65 49 degrees QTcB Int : 403 ms Normal sinus rhythm with sinus arrhythmia Normal ECG Confirmed by ZACK PORTER ([id number]), editor index YISSEL MONTANEZ ([id number]) on 03/20/2025 8:04:50 AM Referred By: Confirmed By: ZACK PORTER 03/20/25 0804 Date Zack Porter MD CC: Dr. Obinna Styles DO; Dr. Quinton Blackburn MD Signed Normal [facility] Absolute lymphocyte countOrd ered By: Obinna Styles on 03-15-2025 Lymphocytes Auto (Unsp spec) [#/Vol] 2.52 10*3/uL 0.83-4.[address] [facility] Absolute neutrophil countOrd ered By: Obinna Styles on 03-15-2025 Neutrophils (Bld) [#/Vol] 4.1 10*3/uL 2.0-7.[address] [facility] Anion gap in Serum or Plasma Ordered By: Obinna Styles on 03-15-2025 Anion gap [Moles/Vol] 13 mmol/L 03-02 [facility] Automated lymphocyte count a s percentage of total leukocytesOrdered By: Obinnaclemencia Styles on 03-15-2025 Lymphocytes/100 WBC Auto (Unsp spec) 34.0 % [facility] BUN/creatinine ratioOrdered By: [facility] on 03-15-2025 Urea nitrogen/Creatinine [Mass ratio] 16.0 mg/mg 08-[address] [facility] Basic Metabolic Profile (BMP )on 03-15-2025 BUN/CRE 16.0 RATIO Normal 08-[address] [facility] Comment on above: Performed By: #### L 501.4021, L500.2500, L100.0100, L501.9520 #### [facility] [address] [place], [address] ECRCL 129.49 ml/min Normal 50-[address] [facility] Comment on above: Performed By: #### L 501.4021, L500.2500, L100.0100, L501.9520 #### [facility] [address] [place], [address] GAP 13 Normal - [facility] Comment on above: Performed By: #### L 501.4021, L500.2500, L100.0100, L501.9520 #### [facility] [address] [place], [address] Potassium [Moles/Vol] 4.0 mmol/L Normal 3.3-5.1 [facility] Comment on above: Performed By: #### L 501.4021, L500.2500, L100.0100, L501.9520 #### [facility] [address] [place], [address] Basophil percentageOrdered B y: Obinna Styles on 03-15-2025 Basophils/100 WBC (Bld) 0.7 % 0-1 [facility] CBC W/Diff, Automatedon 02-17 Absolute Lymph 2.52 X10 3/uL Normal 0.83-4.[address] [facility] Comment on above: Performed By: #### L 501.4021, L500.2500, L100.0100, L501.9520 #### [facility] [address] [place], [address] Absolute Neut 4.1 X10 3/uL Normal 2.0-7.[address] [facility] Comment on above: Performed By: #### L 501.4021, L500.2500, L100.0100, L501.9520 #### [facility] [address] [place], [address] Basophils/100 WBC (Bld) 0.7 % Normal 0-1 [facility] Comment on above: Performed By: #### L 501.4021, L500.2500, L100.0100, L501.9520 #### [facility] [address] [place], [address] Eosinophils/100 WBC (Bld) 1.8 % Normal 0-[address] [facility] Comment on above: Performed By: #### L 501.4021, L500.2500, L100.0100, L501.9520 #### [facility] [address] [place], [address] Erythrocyte distribution width (RBC) [Ratio] 11.9 % Normal 11.6-14.[address] [facility] Comment on above: Performed By: #### L 501.4021, L500.2500, L100.0100, L501.9520 #### [facility] [address] [place], [address] Hematocrit (Bld) [Volume fraction] 42.4 % Normal 37-[address] [facility] Comment on above: Performed By: #### L 501.4021, L500.2500, L100.0100, L501.9520 #### [facility] [address] [place], [address] Hemoglobin (Bld) [Mass/Vol] 14.9 g/dL Normal 12.0-15.[address] [facility] Comment on above: Performed By: #### L 501.4021, L500.2500, L100.0100, L501.9520 #### [facility] [address] [place], [address] IG% 0.300 Normal 0.0-0.[address] [facility] Comment on above: Result Comment: IG% - Immature Granulocytes (promyelocytes, myelocytes and metamyelocytes) > 1% indicates that a LEFT SHIFT is Present. Performed By: #### L 501.4021, L500.2500, L100.0100, L501.9520 #### [facility] [address] [place], [address] Lymphocytes/100 WBC (Bld) 34.0 % Normal 19-[address] [facility] Comment on above: Performed By: #### L 501.4021, L500.2500, L100.0100, L501.9520 #### [facility] [address] [place], [address] MCH (RBC) [Entitic mass] 31.1 pg Normal 27.0-32.[address] [facility] Comment on above: Performed By: #### L 501.4021, L500.2500, L100.0100, L501.9520 #### [facility] [address] [place], [address] MCHC (RBC) [Mass/Vol] 35.1 g/dL Normal 32-36 [facility] Comment on above: Performed By: #### L 501.4021, L500.2500, L100.0100, L501.9520 #### [facility] [address] [place], [address] MCV (RBC) [Entitic vol] 88.5 fL Normal 81-99 [facility] Comment on above: Performed By: #### L 501.4021, L500.2500, L100.0100, L501.9520 #### [facility] [address] [place], [address] Monocytes/100 WBC (Bld) 8.8 % Normal 0-10 [facility] Comment on above: Performed By: #### L 501.4021, L500.2500, L100.0100, L501.9520 #### [facility] [address] [place], [address] Neutrophils/100 WBC (Bld) 54.4 % Normal 47-[address] [facility] Comment on above: Performed By: #### L 501.4021, L500.2500, L100.0100, L501.9520 #### [facility] [address] [place], [address] Nucleated RBC (Bld) [#/Vol] 0 10*3/uL Normal 0-[address] [facility] Comment on above: Performed By: #### L 501.4021, L500.2500, L100.0100, L501.9520 #### [facility] [address] [place], [address] Platelet mean volume (Bld) [Entitic vol] 10.3 fL Normal 6.2-12.[address] [facility] Comment on above: Performed By: #### L 501.4021, L500.2500, L100.0100, L501.9520 #### [facility] [address] [place], [address] Platelets (Bld) [#/Vol] 234 10*3/uL Normal 150-[address] [facility] Comment on above: Performed By: #### L 501.4021, L500.2500, L100.0100, L501.9520 #### [facility] [address] [place], [address] RBC (Bld) [#/Vol] 4.79 10*6/uL Normal 4.2-5.4 [facility] Comment on above: Performed By: #### L 501.4021, L500.2500, L100.0100, L501.9520 #### [facility] [address] [place], [address] RDW SD 39.0 fl Normal 35.1-43.[address] [facility] Comment on above: Performed By: #### L 501.4021, L500.2500, L100.0100, L501.9520 #### [facility] [address] [place], [address] WBC (Bld) [#/Vol] 7.4 10*3/uL Normal 4.4-11.0 [facility] Comment on above: Performed By: #### L 501.4021, L500.2500, L100.0100, L501.9520 #### [facility] [address] [place], [address] Carbon dioxide, total [Moles /volume] in Central venous bloodOrdered By: Obinna Styles on 03-15-2025 CO2 [Moles/Vol] 19.3 mmol/L Low 21.0-32.[address] [facility] Comment on above: Performed By: #### L 501.4021, L500.2500, L100.0100, L501.9520 #### [facility] [address] [place], [address] Chest PA and Lateralon 03-15 Chest PA and Lateral [facility] Imaging Services [address] [place] [address] Chest PA and Lateral MR#: [id number] Acct: [id number] Name: DARA HURTADO Rep #: [id number] : 1990 F 34 From: Steven Gómez MD PCP: Dr. Quinton Blackburn MD Status: REG ER Study: Chest PA and Lateral Date of Exam: 03/15/25 Exam# [id number] Ordering Dr: Obinna Styles DO EXAM: XR Chest, 2 Views CLINICAL INDICATION: CHEST PAIN TECHNIQUE: Frontal and lateral views of the chest. COMPARISON: No relevant prior studies available. FINDINGS: LUNGS AND PLEURAL SPACES: Unremarkable. No consolidation. No pneumothorax. HEART: Unremarkable. No cardiomegaly. MEDIASTINUM: Unremarkable. Normal mediastinal contour. BONES/JOINTS: Unremarkable. No acute fracture. RAD/Chest PA and Lateral IMPRESSION: No acute cardiopulmonary process. Reading Location: [facility] CC: Dr. Obinna Styles DO; Dr. Quinton Blackburn MD Architectural Renderer: Signed Normal [facility] Chloride assayOrdered By: Danie Styles on 03-15-2025 Chloride [Moles/Vol] 108 mmol/L Normal 98-108 [facility] Comment on above: Performed By: #### L 501.4021, L500.2500, L100.0100, L501.9520 #### [facility] [address] [place], [address] D-Dimer Quantitative (DVT/PE )on 03-15-2025 D-DIMER QUANT < 0.27 Low 0.27-0.[address] [facility] Comment on above: Result Comment: NORM AL D-Dimer level (<0.50) indicates no DVT or PE. Performed By: #### L 300.8000 #### [facility] [address] [place], [address] Emergency Department Summary on 03-15-2025 Emergency Department Summary [facility] Medical Records Department [address] [place] [address] Emergency Department Summary 03/15/25 MR#: [id number] Acct: [id number] Name: DARA HURTADO Rep #: [id number] : 1990 34 From: Obinna Styles DO PCP: Dr. Quinton Blackburn MD Status:DEP ER Location: ED HPI History of Present Illness Chief Complaint: Chest Pain Narrative Narrative: Chief complaint and HPI: Episodic chest tightness and shortness of breath. 34-year-old female with past medical history of depression and anxiety not on medication, GERD presents for evaluation of episodic chest tightness and shortness of breath. Patient states that she has been under a a lot of stress lately as she is going through a divorce, child is inducing self-harm tendencies, and family member is in ICU. She endorses insomnia. Patient states for the past 3 weeks she has been having episodic chest tightness and shortness of breath. Describes it as tight and occasionally sharp. People at work told her to be evaluated which is why she presents today. She denies any fever, chills, URI symptoms, abdominal pain, nausea, vomiting. Denies a history of DVT/PE, blood clotting disorder, recent trauma or surgery, unilateral leg swelling, known malignancy, travel. Denies possibility of and she states she is not sexually active as she is going through a divorce. Review of systems: See HPI Medications: As listed on the chart Allergies: As listed on the chart PFSH: Per chart Vital signs: As listed on the chart. Reviewed. Physical exam: Gen: A O x3, NAD but anxious Head: Normocephalic, atraumatic Eyes: No sclera icterus, conjunctiva clear ENT: Moist mucous membranes Neck: Trachea midline, No JVD CV: RRR, no murmurs, no peripheral edema Resp: Lungs CTA BL, no w/r/c GI: Abd soft, non-distended, non-tender, no r/r/g Musc: Full ROM, no deformity Skin: Warm, dry Neuro: Alert, oriented, grossly intact, sensation intact Psych: Cooperative, anxious PFSH PFS Medical History (Updated 03/15/25 @ 15:[address] Obinna Styles, DO) History of change in bowel patterns GERD (gastroesophageal reflux disease) Abdominal pain Inguinal hernia Home Medications ???Medication ???Instructions ???Recorded ???Last Taken ???Type NK 11/26/17 Unknown History Allergy/AdvReac Type Severity Reaction Status Date / Time No Known Allergies Allergy Verified 03/15/25 11:02 Family History Grandfather Colon cancer Father Colon cancer Surgical History (Updated 03/11/20 @ 11:[address] Torrie Alanis MD) S/P right inguinal hernia repair Social History (Updated 08/26/19 @ 14:[address] Samuel Chiang MD) Smoking Status: Current every day smoker tobacco type: cigarettes alcohol intake: never substance use type: does not use EXAM Physical Exam Const Vital Signs: 03/15/25 11:00 03/15/25 11:01 03/15/25 12:00 Temperature 98.1 F Temperature Source Oral Pulse Rate 71 77 Respiratory Rate 16 13 Respiratory Effort Normal Non-Labored Blood Pressure 140/86 H 141/96 H Blood Pressure Mean 104 111 Pulse Ox 98 100 Oxygen Delivery Method Room Air Room Air 03/15/25 13:00 03/15/25 13:05 03/15/25 13:15 Temperature Temperature Source Pulse Rate 82 66 69 Respiratory Rate 24 H 15 19 H Respiratory Effort Blood Pressure 134/95 H 129/85 H Blood Pressure Mean 108 99 Pulse Ox 97 98 97 Oxygen Delivery Method Room Air 03/15/25 13:30 03/15/25 13:45 03/15/25 14:00 Temperature Temperature Source Pulse Rate 76 Respiratory Rate 23 H Respiratory Effort Blood Pressure 138/83 H 112/89 H 121/85 H Blood Pressure Mean 102 95 98 Pulse Ox 98 Oxygen Delivery Method 03/15/25 14:15 03/15/25 14:30 03/15/25 14:45 Temperature Temperature Source Pulse Rate 71 73 80 Respiratory Rate 19 H 19 H 19 H Respiratory Effort Blood Pressure 126/86 H 130/92 H 136/91 H Blood Pressure Mean 100 104 106 Pulse Ox 98 97 97 Oxygen Delivery Method 03/15/25 15:00 03/15/25 15:15 03/15/25 15:35 Temperature 98.1 F Temperature Source Pulse Rate 73 75 75 Respiratory Rate 18 16 16 Respiratory Effort Blood Pressure 126/83 H 128/78 H 128/78 H Blood Pressure Mean 97 95 94 Pulse Ox 98 97 97 Oxygen Delivery Method MDM MDM MDM Narrative Medical decision making narrative: 34-year-old female with past medical history of depression and anxiety not on medication, GERD presents for evaluation of episodic chest tightness and shortness of breath. Both are episodic and have all been going for 3 weeks. Patient endorses a lot of stress and insomnia secondary to complicated social history. On presentation, patie (more content not included)... Normal [facility] Eosinophil percentageOrdered By: Obinna Styles on 03-15-2025 Eosinophils/100 WBC (Bld) 1.8 % 0-[address] [facility] Erythrocyte distribution wid th ratioOrdered By: [facility] on 03-15-2025 Erythrocyte distribution width (RBC) [Ratio] 11.9 % 11.6-14.[address] [facility] Erythrocyte distribution wid th standard deviationOrdered By: [facility] CenterNicholas Lis on 03-15-2025 Erythrocyte distribution width (RBC) [Ratio] 39.0 fl 35.1-43.[address] [facility] Glomerular filtration rate ( GFR) estimation/1.73 sq m using serum, plasma, or whole bOrdered By: [facility] CenterJanna on 03-15-2025 GFR/1.73 sq M.predicted among non-blacks MDRD (S/P/Bld) [Vol rate/Area] 122 mL/min/{1.73_m2} Normal >[address] [facility] Comment on above: mL/min/1.73m2 CKD-EP I Creatinine Equation (2020) Result Comment: mL/m in/1.73m2 CKD-EPI Creatinine Equation (2020) Performed By: #### L 501.4021, L500.2500, L100.0100, L501.9520 #### [facility] [address] [place], [address] Hematocrit Auto (Bld) [Volum e fraction]Ordered By: Obinna Styles on 03-15-2025 Hematocrit (Bld) [Volume fraction] 42.4 % 37-[address] [facility] Hemoglobin measurementOrdere d By: Obinna Styles on 03-15-2025 Hemoglobin (Bld) [Mass/Vol] 14.9 g/dL 12.0-15.[address] [facility] Immature granulocytes/100 WB C Auto (Bld)Ordered By: Obinna Styles on 03-15-2025 Immature granulocytes/100 WBC (Bld) 0.300 % 0.0-0.[address] [facility] Comment on above: IG% - Immature Granu locytes (promyelocytes, myelocytes and metamyelocytes) > 1% indicates that a LEFT SHIFT is Present. L499.0042on 03-15-2025 Trop T High Sen < 6 Normal <=[address] [facility] Comment on above: Performed By: #### L 499.0042 #### [facility] [address] [place], [place], [address] Performed By: #### L 501.4021, L500.2500, L100.0100, L501.9520 #### [facility] [address] [place], [place], [address] MCV (mean corpuscular volume ) determinationOrdered By: Obinna Styles on 03-15-2025 MCV (RBC) [Entitic vol] 88.5 fL 81-99 [facility] Mean corpuscular hemoglobin (MCH) determinationOrdered By: Obinna Styles on 03-15-2025 MCH (RBC) [Entitic mass] 31.1 pg 27.0-32.[address] [facility] Mean corpuscular hemoglobin concentration (MCHC) determinationOrdered By: Obinnaclemencia Styles on 03-15-2025 MCHC (RBC) [Mass/Vol] 35.1 g/dL 32-36 [facility] Mean platelet volume determi nationOrdered By: Obinna Styles on 03-15-2025 Platelet mean volume (Bld) [Entitic vol] 10.3 fL 6.2-12.[address] [facility] Monocyte percentageOrdered B y: Obinna Styles on 03-15-2025 Monocytes/100 WBC (Bld) 8.8 % 0-10 [facility] Neutrophil percentageOrdered By: Obinna Styles on 03-15-2025 Neutrophils/100 WBC (Bld) 54.4 % 47-[address] [facility] Nucleated red blood cell per centageOrdered By: Obinna Styles on 03-15-2025 Nucleated RBC/100 WBC (Bld) [Ratio] 0 % 0-[address] [facility] Platelet countOrdered By: Danie Styles on 03-15-2025 Platelets (Bld) [#/Vol] 234 10*3/uL 150-[address] [facility] Potassium measurement (mass/ volume)Ordered By: Obinna Styles on 03-15-2025 Potassium (Unsp spec) [Mass/Vol] 4.0 mmol/L 3.3-5.[address] [facility] RBC Auto (Bld) [#/Vol]Ordere d By: [facility]25 RBC (Bld) [#/Vol] 4.79 10*6/uL 4.2-5.4 [facility] Serum creatinine measurement (mass/volume)Ordered By: Obinna Styles on 03-15-2025 Creatinine [Mass/Vol] 0.58 mg/dL Low 0.70-1.20 [facility] Comment on above: Performed By: #### L 501.4021, L500.2500, L100.0100, L501.9520 #### [facility] [address] [place] [address], [address] Serum glucose measurement (m ass/volume)Ordered By: Obinna Styles on 03-15-2025 Glucose [Mass/Vol] 78 mg/dL Normal 70-99 [facility] Comment on above: Performed By: #### L 501.4021, L500.2500, L100.0100, L501.9520 #### [facility] [address] [place], [address] Serum or plasma calcium tal urement (mass/volume)Ordered By: Obinna Hays on 03-15-2025 Calcium [Mass/Vol] 9.6 mg/dL Normal 7.6-11.0 [facility] Comment on above: Performed By: #### L 501.4021, L500.2500, L100.0100, L501.9520 #### [facility] [address] [place], [address] Serum or plasma urea nitroge n measurement (mass/volume)Ordered By: Obinna Styles on 03-15-2025 Urea nitrogen [Mass/Vol] 9 mg/dL Normal 4-[address] [facility] Comment on above: Performed By: #### L 501.4021, L500.2500, L100.0100, L501.9520 #### [facility] [address] [place], [address] Sodium levelOrdered By: Yunior Styles on 03-15-2025 Sodium [Moles/Vol] 140 mmol/L Normal 133-145 [facility] Comment on above: Performed By: #### L 501.4021, L500.2500, L100.0100, L501.9520 #### [facility] [address] [facility], [address] TSH DL <= 0.005 mIU/L QnOrde red By: Obinna Styles on 03-15-2025 TSH Qn 0.739 uIU/mL 0.300-4.[address] [facility] Thyroid Stim Hormone (TSH)on 03-15-2025 TSH 0.739 uIU/mL Normal 0.300-4.[address] [facility] Comment on above: Performed By: #### L 501.4021, L500.2500, L100.0100, L501.9520 #### [facility] [address] [place], [address] Troponin T.cardiac [Mass/vol ume] in Serum or Plasma by High sensitivity methodOrdered By: Obinna Styles on 03-15-2025 Troponin T.cardiac High sensitivity method [Mass/Vol] < 6 ng/L <[address] [facility] Troponin T.cardiac High sensitivity method [Mass/Vol] < 6 ng/L <[address] [facility] White blood cell (WBC) count Ordered By: [facility]na [facility] on 03-[facility]-2025 WBC (Bld) [#/Vol] 7.4 10*3/uL 4.4-11.0 [facility] Basic Metabolic Profile (BMP )on 09-08-2024 BUN/CRE 33.7 RATIO High 10-[address] [facility] Comment on above: Performed By: #### L 500.2500, L500.4100 #### [facility] [address] [place], [address] CA,Total 8.6 mg/dL Normal 8.5-10.[address] [facility] Comment on above: Performed By: #### L 500.2500, L500.4100 #### [facility] [address] [place], [address] Chloride [Moles/Vol] 109 mmol/L High 98-107 [facility] Comment on above: Performed By: #### L 500.2500, L500.4100 #### [facility] [address] [place], [address] CO2 [Moles/Vol] 27.0 mmol/L Normal 21.0-32.[address] [facility] Comment on above: Performed By: #### L 500.2500, L500.4100 #### [facility] [address] [place], [address] Creatinine [Mass/Vol] 0.53 mg/dL Low 0.55-1.02 [facility] Comment on above: Result Comment: The validity of the calculated GFR GFRAA in patients over 70 years has not been determined. Clinical correlation is essential. Performed By: #### L 500.2500, L500.4100 #### [facility] [address] [place], [address] EST GFR - AA 169 mL/min Normal >[address] [facility] Comment on above: Result Comment: Afri can Lebanese GFR Calc Performed By: #### L 500.2500, L500.4100 #### [facility] [address] [place], [address] GAP 2 Low 5-[address] [facility] Comment on above: Performed By: #### L 500.2500, L500.4100 #### [facility] [address] [place], [address] GFR/1.73 sq M.predicted among non-blacks MDRD (S/P/Bld) [Vol rate/Area] 140 mL/min/{1.73_m2} Normal >[address] [facility] Comment on above: Result Comment: Non- GFR Calc Performed By: #### L 500.2500, L500.4100 #### [facility] [address] [place], [address] Glucose [Mass/Vol] 91 mg/dL Normal 74-106 [facility] Comment on above: Performed By: #### L 500.2500, L500.4100 #### [facility] [address] [place], [address] Potassium [Moles/Vol] 4.2 mmol/L Normal 3.5-5.1 [facility] Comment on above: Performed By: #### L 500.2500, L500.4100 #### [facility] [address] [place], [address] Sodium [Moles/Vol] 138 mmol/L Normal 136-145 [facility] Comment on above: Performed By: #### L 500.2500, L500.4100 #### [facility] [address] [place], [address] Urea nitrogen [Mass/Vol] 18 mg/dL Normal 7-[address] [facility] Comment on above: Performed By: #### L 500.2500, L500.4100 #### [facility] [address] [place], [address] Lipid Profileon 09-08-2024 Cholesterol [Mass/Vol] 149 mg/dL Normal 200 [facility] Comment on above: Result Comment: <200 mg/dL Desirable 200-240 mg/dL Borderline >240 mg/dL High Risk Performed By: #### L 501.4021, L500.2500, L100.0100, L501.9520 #### [facility] [address] [place], [address] Cholesterol in HDL [Mass/Vol] 61 mg/dL Normal [facility] Comment on above: Result Comment: The drugs N-Acetylcysteine and Metamizole may falsely depress this assay. Reference Range HDL <40 mg/dL Low HDL Cholesterol HDL >or= 60 mg/dL High HDL Cholesterol Performed By: #### L 501.4021, L500.2500, L100.0100, L501.9520 #### [facility] [address] [place], [address] Cholesterol in LDL [Mass/Vol] 72 mg/dL Normal 0-[address] [facility] Comment on above: Performed By: #### L 501.4021, L500.2500, L100.0100, L501.9520 #### [facility] [address] [place], [address] Cholesterol in VLDL [Mass/Vol] 16 mg/dL Normal 5-[address] [facility] Comment on above: Performed By: #### L 501.4021, L500.2500, L100.0100, L501.9520 #### [facility] [address] [place], [address] Triglyceride [Mass/Vol] 79 mg/dL Normal W [facility] Comment on above: Result Comment: The drugs N-Acetylcysteine and Metamizole may falsely depress this assay. Serum Triglycerides Reference Interval Normal <150 mg/dL Borderline high 150 - 199 mg/dL High 200 - 499 mg/dL Very High > or = 500 mg/dL Performed By: #### L 501.4021, L500.2500, L100.0100, L501.9520 #### [facility] [address] [place], [address] CNOVon 08-30-2022 CNOV Office Visit (UCWSTR) DARA HURTADO ([id number]) 1990 F Date Time Provider Department 08/30/22 9:00 AM PIERCE BUTT [facility] During your visit today, we recorded the following information about you: Temperature Pulse Respiration Blood pressure 97.7 degrees 106/minute 16/minute 126/84 Weight Last Period 67 kg 08/19/22 Pierce Butt APRN.PATTERN FINISHER 08/30/2022 10:06 AM Signed Subjective HPI HPI Dara Hurtado is a 32 year old female who presents today for CC of st, congestion. This started 2 days ago. Has tried otc medication for relief. Symptoms are worsened by nothing. Risk factors no known sick exposures. Denies possibility of being . .Patient presents with: Pain, Throat: Pt reported throat pain rated 9, (RT) ear pain x2 days. PAST MEDICAL HISTORY Diagnosis Date Chlamydia 2010 Treated 2010 Depression Pre-eclampsia PAST SURGICAL HISTORY Procedure Laterality Date HERNIA REPAIR HX 2018 Right Inguinal - Dr. Simon at [facility] ALLERGIES Septra [Sulfamethoxazole-Tr imethoprim] MEDICATIONS docusate sodium (COLACE ORAL) Take by mouth as needed. (Patient not taking: Reported on 08/30/2022) aspirin, enteric coated (ECOTRIN LOW STRENGTH) 81 mg EC tablet Take 1 tablet by mouth once daily. (Patient not taking: Reported on 08/30/2022) Tomstnbc-Vo-Buf-Fe-F A ( VITAMIN) tab Take 1 tablet by mouth. (Patient not taking: Reported on 08/30/2022) LYSINE ORAL Take by mouth as needed. FAMILY HISTORY Problem Relation Age of Onset None Mother Cancer Father small intestines No Known Problems Brother No Known Problems Brother No Known Problems Brother No Known Problems Maternal Grandmother Diabetes Maternal Grandfather other (ALS) Maternal Grandfather Diabetes Paternal Grandmother Cancer Paternal Grandfather lung; small intestines/liver No Known Problems Daughter No Known Problems Son Social History Tobacco Use Smoking status: Every Day Years: 12.00 Types: Cigarettes Smokeless tobacco: Never Tobacco comments: 5 cigarettes a day Vaping Use Vaping Use: Never used Substance Use Topics Alcohol use: Not Currently Comment: Socially Drug use: Never Review of Systems Constitutional: Negative for fever. HENT: Positive for congestion and sore throat. Negative for ear pain and nosebleeds. Respiratory: Negative for cough, shortness of breath and wheezing. Musculoskeletal: Negative for neck pain. Skin: Negative for itching and rash. Objective Blood pressure 126/84, pulse 106, temperature 36.5 ?C (97.7 ?F), resp. rate 16, weight 67 kg (147 lb 9.6 oz), last menstrual period 08/19/2022, SpO2 97 %, unknown if currently . Physical Exam Constitutional: General: She is not in acute distress. Appearance: She is not toxic-appearing or diaphoretic. HENT: Head: Normocephalic and atraumatic. Nose: Nose normal. Mouth/Throat: Lips: Zeigler. Mouth: Mucous membranes are moist. Pharynx: Uvula midline. Posterior oropharyngeal erythema present. No pharyngeal swelling, oropharyngeal exudate or uvula swelling. Tonsils: Tonsillar exudate present. 2+ on the right. 2+ on the left. Pulmonary: Effort: Pulmonary effort is normal. No accessory muscle usage or respiratory distress. Neurological: Mental Status: She is alert and oriented to person, place, and time. ASSESSMENT/PLAN: 1. Strep throat - ICD9: 034.0, ICD10: J02.0 (primary diagnosis) - suspect strep - Alere Strep Test pos, no culture pending - antibiotic as written - Discussed supportive care treatment with fluids, rest and analgesia. - The patient should follow up in 3-5 days if symptoms persist or worsen - CEPHALEXIN 500 MG CAPSULE - PREDNISONE 20 MG TABLET 2. Sore throat - ICD9: 462, ICD10: J02.9 As above. - ALERE STREP A TEST (AG) Pierce Butt APRN.PATTERN FINISHER Allergies As of Date: 08/30/2022 Noted Allergy Reaction SEPTRA (SULFAMETHOXAZOLE-TR IMETHO*05/02/2014 4 - Hives Date Reviewed: 08/30/2022 Reviewed by: Pierce Butt APRN.PATTERN FINISHER - Fully Assessed Reason for Visit: Pain, Throat [856] Cmt: Pt reported throat pain rated 9, (RT) ear pain x2 days. Primary Visit Diagnosis:Strep throat [J02.0] Other Visit Diagnosis:Sore throat [J02.9] Order(s):ALERE STREP A TEST (AG) [2753300] Order #: [id number] cephALEXin (KEFLEX) 500 mg capsuleTake 1 capsule by mouth twice daily for 10 days.Disp: 20 capsuleRfl: 0 STREP A MOLECULAR (POC) [6771715] Order #: [id number]. #:[id number] predniSONE (DELTASONE) 20 mg tabletTake 2 tablets by mouth once daily for 5 days.Disp: 10 tabletRfl: 0 Prescriptions as of 08/30/2022 - cephALEXin (KEFLEX) 500 mg capsule Take 1 capsule by mouth twice daily for 10 days. - predniSONE (DELTASONE) 20 mg tablet Take 2 tablets by mouth once daily for 5 days. - docusate sodium (COLACE ORAL) Take by mouth as needed. - aspirin, enteric (more content not included)... Normal [facility] STREP A MOLECULAR (POC)on Procedural Control Valid [facility] Strep A (POCT) Positive Abnormal Negative [facility] CBC + DIFFon 10-16-2020 Basophils (Bld) [#/Vol] 0.00 x10EE3/UL Normal 0.00 - 0 .10 [facility] Comment on above: Performed By: #### 2 98678 #### [facility],[address] [place] [address] Basophils/100 WBC (Bld) 0.1 % Normal 0.0 - 2.0 [facility] Comment on above: Performed By: #### 2 16779 #### [facility],[address] [place] [address] CBC + DIFF Normal [facility] Comment on above: Result Comment: CBC- COMPLETE BLOOD COUNT Performed By: #### 2 15140 #### [facility],[address] [place], [place] [address] Eosinophils (Bld) [#/Vol] 0.10 x10EE3/UL Normal 0.00 - 0.50 [facility] Comment on above: Performed By: #### 2 12058 #### [facility],[address] [place] [address] Eosinophils/100 WBC (Bld) 0.5 % Normal 0.0 - 7.0 [facility] Comment on above: Performed By: #### 2 32187 #### [facility],[address] [place] [address] Erythrocyte distribution width (RBC) [Ratio] 13.0 % Normal 12.0 - 15.6 [facility] Comment on above: Performed By: #### 2 53538 #### [facility],[address] [place] [address] Hematocrit (Bld) [Volume fraction] 32.9 % Low 34.0 - 46.0 [facility] Comment on above: Performed By: #### 2 84095 #### [facility],[address] [place] [address] Hemoglobin (Bld) [Mass/Vol] 11.4 g/dL Low 12.0 - 16.0 [facility] Comment on above: Performed By: #### 2 05827 #### [facility],[address] [place] [address] Lymphocytes (Bld) [#/Vol] 2.10 x10EE3/UL Normal 0.80 - 2.80 [facility] Comment on above: Performed By: #### 2 40639 #### [facility],[address] [place] [address] Lymphocytes/100 WBC (Bld) 17.7 % Low 20.0 - 45.0 [facility] Comment on above: Performed By: #### 2 71297 #### [facility],[address] [place] [address] MANUAL DIFF N/A Normal [facility] Comment on above: Performed By: #### 2 46914 #### [facility],[address] [place] [address] MCH (RBC) [Entitic mass] 31 pg Normal 27 - 33 [facility] Comment on above: Performed By: #### 2 09250 #### [facility],[address] [place] [address] MCHC (RBC) [Mass/Vol] 35 X10 3 Normal 32 - 36 [facility] Comment on above: Performed By: #### 2 77020 #### [facility],[address] [place] [address] MCV (RBC) [Entitic vol] 90 fL Normal 80 - 99 [facility] Comment on above: Performed By: #### 2 98896 #### [facility],[address] [place] [address] Monocytes (Bld) [#/Vol] 1.00 x10EE3/UL Normal 0.20 - 1 .00 [facility] Comment on above: Performed By: #### 2 14944 #### [facility],[address] [place] [address] MONOS % 8.5 % Normal 0.0 - 10.0 [facility] Comment on above: Performed By: #### 2 35810 #### [facility],[address] [place], [place] [address] Morphology Satish (Bld) [Interp] N/A Normal [facility] Comment on above: Result Comment: {CD] Performed By: #### 2 82681 #### [facility],[address] [place] [address] Neutrophils (Bld) [#/Vol] 8.70 x10EE3/UL High 1.50 - 7.10 [facility] Comment on above: Performed By: #### 2 86429 #### [facility],[address] [place], [place] [address] Neutrophils/100 WBC (Bld) 73.2 % Normal 46.0 - 76.0 [facility] Comment on above: Performed By: #### 2 68884 #### [facility],[address] [place] [address] Platelet mean volume (Bld) [Entitic vol] 10.0 fL Normal 6.6 - 10.5 [facility] Comment on above: Result Comment: AUTO MATED DIFFERENTIAL Performed By: #### 2 48155 #### [address] [address] Platelets (Bld) [#/Vol] 165 x10EE3/UL Normal 150 - 450 [facility] Comment on above: Performed By: #### 2 34404 #### [facility],[address] [place] [address] RBC (Bld) [#/Vol] 3.64 x 10EE6/UL Low 4.10 - 5.30 [facility] Comment on above: Performed By: #### 2 87123 #### [facility],[address] [place] [address] WBC (Bld) [#/Vol] 11.9 x 10EE3/UL High 4.5 - 10.8 [facility] Comment on above: Performed By: #### 2 27843 #### [address] [address] BB TYPE & SCREENon 0 ABO O Normal [facility] Comment on above: Performed By: #### 2 55199 #### [facility],[address] [place] [address] ANTIBODY SCR Negative Normal [facility] Comment on above: Performed By: #### 2 53482 #### [facility],[address] [place] [address] BB TYPE & SCREEN Normal [facility] Comment on above: Result Comment: TYPE , Rh, AND SCREEN Performed By: #### 2 21370 #### [facility],[address] [place] [address] Rh Nom (Bld) Positive Normal [facility] Comment on above: Performed By: #### 2 20655 #### [facility],[address] [place] [address] CBC + DIFFon 10-15-2020 Basophils (Bld) [#/Vol] 0.00 x10EE3/UL Normal 0.00 - 0 .10 [facility] Comment on above: Performed By: #### 2 65922 #### [facility],[address] [place] [address] Basophils/100 WBC (Bld) 0.2 % Normal 0.0 - 2.0 [facility] Comment on above: Performed By: #### 2 35507 #### [facility],[address] [place] [address] CBC + DIFF Normal [facility] Comment on above: Result Comment: CBC- COMPLETE BLOOD COUNT Performed By: #### 2 21570 #### [facility],[address] [place] [address] Eosinophils (Bld) [#/Vol] 0.10 x10EE3/UL Normal 0.00 - 0.50 [facility] Comment on above: Performed By: #### 2 92581 #### [facility],[address] [place] [address] Eosinophils/100 WBC (Bld) 1.0 % Normal 0.0 - 7.0 [facility] Comment on above: Performed By: #### 2 95645 #### [facility],[address] [place] [address] Erythrocyte distribution width (RBC) [Ratio] 12.6 % Normal 12.0 - 15.6 [facility] Comment on above: Performed By: #### 2 62859 #### [facility],[address] [place] [address] Hematocrit (Bld) [Volume fraction] 37.9 % Normal 34.0 - 46.0 [facility] Comment on above: Performed By: #### 2 05277 #### [facility],[address] [place] [address] Hemoglobin (Bld) [Mass/Vol] 13.3 g/dL Normal 12.0 - 16.0 [facility] Comment on above: Performed By: #### 2 17801 #### [facility],[address] [place] [address] Lymphocytes (Bld) [#/Vol] 2.30 x10EE3/UL Normal 0.80 - 2.80 [facility] Comment on above: Performed By: #### 2 85029 #### [address] [address] Lymphocytes/100 WBC (Bld) 20.9 % Normal 20.0 - 45.0 [facility] Comment on above: Performed By: #### 2 97085 #### [facility],[address] [place] [address] MANUAL DIFF N/A Normal [facility] Comment on above: Performed By: #### 2 85370 #### [address] [address] MCH (RBC) [Entitic mass] 31 pg Normal 27 - 33 [facility] Comment on above: Performed By: #### 2 94717 #### [facility],[address] [place] [address] MCHC (RBC) [Mass/Vol] 35 X10 3 Normal 32 - 36 [facility] Comment on above: Performed By: #### 2 73467 #### [facility],[address] [place] [address] MCV (RBC) [Entitic vol] 89 fL Normal 80 - 99 [facility] Comment on above: Performed By: #### 2 40769 #### [facility],[address] [place] [address] Monocytes (Bld) [#/Vol] 1.00 x10EE3/UL Normal 0.20 - 1 .00 [facility] Comment on above: Performed By: #### 2 11964 #### [facility],[address] [place] [address] MONOS % 9.0 % Normal 0.0 - 10.0 [facility] Comment on above: Performed By: #### 2 49353 #### [facility],[address] [place] [address] Morphology Satish (Bld) [Interp] N/A Normal [facility] Comment on above: Result Comment: {CD] Performed By: #### 2 55668 #### [facility],[address] [place] [address] Neutrophils (Bld) [#/Vol] 7.50 x10EE3/UL High 1.50 - 7.10 [facility] Comment on above: Performed By: #### 2 45850 #### [address] [address] Neutrophils/100 WBC (Bld) 68.9 % Normal 46.0 - 76.0 [facility] Comment on above: Performed By: #### 2 43573 #### [facility],[address] [place] [address] Platelet mean volume (Bld) [Entitic vol] 9.8 fL Normal 6.6 - 10.5 [facility] Comment on above: Result Comment: AUTO MATED DIFFERENTIAL Performed By: #### 2 13261 #### [facility],[address] [place] [address] Platelets (Bld) [#/Vol] 168 x10EE3/UL Normal 150 - 450 [facility] Comment on above: Performed By: #### 2 99011 #### [facility],[address] [place] [address] RBC (Bld) [#/Vol] 4.26 x 10EE6/UL Normal 4.10 - 5.30 [facility] Comment on above: Performed By: #### 2 22701 #### [facility],[address] [place] [address] WBC (Bld) [#/Vol] 10.9 x 10EE3/UL High 4.5 - 10.8 [facility] Comment on above: Performed By: #### 2 61601 #### [facility],[address] [place] [address] HEPATIC FUNCTION PANELon Albumin [Mass/Vol] 2.8 g/dL Low 3.4 - 5.0 [facility] Comment on above: Performed By: #### 2 08122 #### [facility],[address] [place] [address] ALK PHOS 115 U/L Normal 46 - 116 [facility] Comment on above: Performed By: #### 2 [id number] #### [facility],[address] [place] [address] 57878 ALT/SGPT 22 U/L Normal 14 - 59 [facility] Comment on above: Performed By: #### 2 61904 #### [facility],[address] [place] [address] 34999 AST/SGOT 14 U/L Normal 13 - 39 [facility] Comment on above: Performed By: #### 2 60690 #### [facility],[address] [place] [address] 99123 Bilirubin [Mass/Vol] 0.3 mg/dL Normal 0.2 - 1.0 [facility] Comment on above: Performed By: #### 2 63801 #### [facility],[address] [place] [address] Bilirubin.direct [Mass/Vol] 0.1 mg/dL Normal 0.0 - 0.2 [facility] Comment on above: Performed By: #### 2 46866 #### [facility],[address] [place] [address] HEPATIC FUNCTION PANEL Normal [facility] Comment on above: Result Comment: HEPA TIC FUNCTION PROFILE Performed By: #### 2 66542 #### [facility],[address] [place] [address] Protein [Mass/Vol] 6.4 g/dL Normal 6.4 - 8.2 [facility] Comment on above: Performed By: #### 2 48769 #### [facility],[address] [place], [place] [address] NT-proBNPon 10-15-2020 Natriuretic peptide B (Bld) [Mass/Vol] 35 pg/mL Normal 0 - 125 [facility] Comment on above: Performed By: #### 2 25479 #### [facility],[address] [place] [address] 17128 URIC ACIDon 10-15-2020 Urate [Mass/Vol] 4.9 mg/dL Normal 2.6 - 6.0 [facility] Comment on above: Performed By: #### 2 84783 #### [facility],[address] [place] [address] 03704 URINE CREATININE AND PROTEIN RATIOon 10-15-2020 CREATININE UR 25.1 mg/dl Normal [facility] Comment on above: Performed By: #### 2 57516 #### [facility],[address] [place] [address] 52201 PC RATIO 0.39 mg/dL Normal 0.00 - 10.00 [facility] Comment on above: Performed By: #### 2 36418 #### [facility],[address] [place] [address] 56877 Protein (U) [Mass/Vol] 9.90 mg/dL Normal 0.00 - 10.00 [facility] Comment on above: Performed By: #### 2 64053 #### [facility],[address] [place] [address] 41434 CULTURE GBS SCREENo n 09-28-2020 CULTURE GBS SCREEN CULTURE GBS SCREEN _VAGINAL GROUP B STREP CULTURE_ M I C R O B I O L O G Y R E P O R T FINAL Antimicrobial Susceptibility and Organism Identification Report Specimen Number : [id number] Requested : 09/28/20 Specimen Source : VAGINAL Collected : 09/28/20 11:12 Epstein of Isolation : OUTPATIENT Received : 09/28/20 11:12 Requesting Physician : SORIN Patient/Specimen Tests and Comments Specimen Comments FINAL REPORT: NEGATIVE FOR GROUP B BETA STREP Tech : Source : VAGINAL ID # : [id number] FINAL Report Date : / / : Collected : 09/28/20 11:12 10/01/20.1223.KLS. 09/30/20.0807.JLN. 10/01/20.1223.[facility].CO MPLETE Normal [facility] Comment on above: Performed By: #### 2 24470 #### [facility],[address] [place] [address] 24291 CBC + DIFFon - Basophils (Bld) [#/Vol] 0.00 x10EE3/UL Normal 0.00 - 0 .10 [facility] Comment on above: Performed By: #### 2 67941 #### [facility],[address] [place] [address] 49152 Basophils/100 WBC (Bld) 0.2 % Normal 0.0 - 2.0 [facility] Comment on above: Performed By: #### 2 58911 #### [facility],[address] [place] [address] 65270 CBC + DIFF Normal [facility] Comment on above: Result Comment: CBC- COMPLETE BLOOD COUNT Performed By: #### 2 35977 #### [facility],[address] [place] [address] Eosinophils (Bld) [#/Vol] 0.10 x10EE3/UL Normal 0.00 - 0.50 [facility] Comment on above: Performed By: #### 2 61047 #### [facility],[address] [place], [place] [address] Eosinophils/100 WBC (Bld) 1.0 % Normal 0.0 - 7.0 [facility] Comment on above: Performed By: #### 2 02164 #### [place] [address] Erythrocyte distribution width (RBC) [Ratio] 12.2 % Normal 12.0 - 15.6 [facility] Comment on above: Performed By: #### 2 46458 #### [place] [address] Hematocrit (Bld) [Volume fraction] 35.1 % Normal 34.0 - 46.0 [facility] Comment on above: Performed By: #### 2 86671 #### [place] [id number] Hemoglobin (Bld) [Mass/Vol] 12.4 g/dL Normal 12.0 - 16.0 [facility] Comment on above: Performed By: #### 2 62952 #### [place] [id number] Lymphocytes (Bld) [#/Vol] 1.50 x10EE3/UL Normal 0.80 - 2.80 [facility] Comment on above: Performed By: #### 2 40639 #### [place] [id number] Lymphocytes/100 WBC (Bld) 16.6 % Low 20.0 - 45.0 [facility] Comment on above: Performed By: #### 2 33153 #### [facility],[address] [place] [address] MANUAL DIFF N/A Normal [facility] Comment on above: Performed By: #### 2 89096 #### [facility],[address] [place] [address] MCH (RBC) [Entitic mass] 32 pg Normal 27 - 33 [facility] Comment on above: Performed By: #### 2 16652 #### [facility],[address] [place] [address] MCHC (RBC) [Mass/Vol] 35 X10 3 Normal 32 - 36 [facility] Comment on above: Performed By: #### 2 53947 #### [facility],[address] [place] [address] MCV (RBC) [Entitic vol] 91 fL Normal 80 - 99 [facility] Comment on above: Performed By: #### 2 88218 #### [facility],[address] [place], [place] [address] Monocytes (Bld) [#/Vol] 0.80 x10EE3/UL Normal 0.20 - 1 .00 [facility] Comment on above: Performed By: #### 2 45326 #### [place] [id number] MONOS % 8.6 % Normal 0.0 - 10.0 [facility] Comment on above: Performed By: #### 2 55121 #### [facility],[address] [place], [place] [address] Morphology Satish (Bld) [Interp] N/A Normal [facility] Comment on above: Performed By: #### 2 71182 #### [place] [id number] Neutrophils (Bld) [#/Vol] 6.80 x10EE3/UL Normal 1.50 - 7.10 [facility] Comment on above: Performed By: #### 2 29187 #### [facility],[address] [place] [address] 58002 Neutrophils/100 WBC (Bld) 73.6 % Normal 46.0 - 76.0 [facility] Comment on above: Performed By: #### 2 34822 #### [facility],[address] [place] [address] 13935 Platelet mean volume (Bld) [Entitic vol] 9.5 fL Normal 6.6 - 10.5 [facility] Comment on above: Result Comment: AUTO MATED DIFFERENTIAL Performed By: #### 2 85546 #### [facility],[address] [place] [address] 08697 Platelets (Bld) [#/Vol] 192 x10EE3/UL Normal 150 - 450 [facility] Comment on above: Performed By: #### 2 28228 #### [facility],[address] [place] [address] 92532 RBC (Bld) [#/Vol] 3.87 x 10EE6/UL Low 4.10 - 5.30 [facility] Comment on above: Performed By: #### 2 57106 #### [facility],[address] [place] [address] 77840 WBC (Bld) [#/Vol] 9.2 x 10EE3/UL Normal 4.5 - 10.8 [facility] Comment on above: Performed By: #### 2 98192 #### [facility],[address] [place] [address] 85183 GLUCOSE CHALLENGE 50GM 1 JAZZMINE Xavier 08-03-2020 Glucose [Mass/Vol] Normal [facility] Comment on above: Result Comment: GLUC OSE CHALLENGE 50 GMS 1 HOUR Performed By: #### 2 99194 #### [facility],[address] [place] [address] 67732 Glucose [Mass/Vol] 135 mg/dL Normal 70 - 140 [facility] Comment on above: Performed By: #### 2 40241 #### [facility],[address] [place] [address] 24600 HPV High Riskon 11-02-2018 HPV High Risk SEE REF LAB Normal [facility] Comment on above: Order Comment: LMP- has no periods with Mirena Performed By: #### 1 [id number] #### [facility] [employer] [address] [place] [address] IG PAP [id number] 11-02-2018 Diagnosis: See Ref Lab Report Normal [facility] Comment on above: Performed By: #### 1 [id number] #### [facility] [employer] [address] [address] [place] [address] Pathology ([facility])on 10-21-2018 Pathology ([facility]) FINAL GYNECOLOGIC CYTOLOGY REPORT SPECIMEN ADEQUACY Satisfactory for Evaluation. Endocervical cells/transformation zone component present. GENERAL CATEGORIZATION Negative for Intraepithelial Lesion or Malignancy DESCRIPTIVE DIAGNOSIS Reactive cellular changes associated with inflammation and repair. Hyperkeratosis present. Parakeratosis is present. Shift in vaginal tarsha suggestive of bacterial vaginosis. COMMENT High Risk HPV testing was ordered and performed at [facility] Laboratory for the following high risk genotypes: 16/18/31/33/35/39/45 /51/52/56/58/59/66/6 8. A negative result is a normal result. A positive result is an abnormal result. Genotype-specific testing for high risk HPV types 16/18/45 is available upon request dependent upon a positive high risk HPV result. High Risk HPV: Positive CONSULTING COMMENTS Dr. Geneva Batista has reviewed this case and concurs. RELATED LABORATORY RESULTS Ordered by: ARCADIO Ord Date: 10/21/2018 Ord Time: 21:36 Test Collected Result Abnormal Range Units Specimen Name D&T Type HPV Positive AB NA MSC RNA, 9 High Risk The HPV test detects E6/E7 viral messenger RNA (mRNA) high-risk HPV genotypes 16,18,31,33,35,39,45 ,51,55,58,59,66, and 68 which are associated with cervical cancer and its precursor lesions. However, cross-reactions with other genotypes may occur. Results should be correlated with cytologic and histologic findings. Sensitivity may be affected by cellularity of specimen. CLINICAL HISTORY Comment: LMP: Has No Periods with Mirena SPECIMEN (A) SCREENING CERVICAL/ENDOCERVICA L THIN PREP VIAL Performed at [facility], [address] [place] [address] Screened by: ROSANA GUERRA Geochemical Manager Signed Out by: CURTIS BELLO M.D. Reported: 11/01/2018 Normal [facility] Comment on above: Performed By: #### G YN #### [facility] [address] [place] [address] US Pelvis Non-OB Completeon 04-22-2018 US Pelvis Non-OB Complete Exam Date/Time: 04/22/2018 13:40 EDT Reason for Exam: PELVIC PAIN;Pelvic pain Report STUDY: US Pelvis Non-OB Complete; 04/22/2018 1:40 pm INDICATION: Pelvic pain. COMPARISON: None. ACCESSION NUMBER(S): [id number] ORDERING CLINICIAN: Saúl Harrell TECHNIQUE: Multiple multiplanar static schofield scale, color and spectral waveform sonographic images of the pelvis were obtained. Transabdominal and endovaginal ultrasound was performed. FINDINGS: UTERUS: The uterus is grossly unremarkable in appearance. The uterus measures at 9.3 cm in length and 3.8 x 5.7 cm in AP and transverse diameters. ENDOMETRIUM: An intrauterine device is identified in situ within the endometrial canal. The endometrium measures a thickness of 4 mm, which is normal. RIGHT ADNEXA: The right ovary measures at 4.1 x 2.4 x 2.8 cm. A cyst is seen within the right ovary, measuring at up to 2.3 x 1.4 x 2.0 cm in diameter. Normal-appearing color Doppler flow is seen in the right ovary. No right adnexal mass is identified. LEFT ADNEXA: The left ovary measures at 3.0 x 1.8 x 2.0 cm. Normal-appearing color Doppler flow is seen in the left ovary. No left adnexal masses identified. CUL DE SAC: No free fluid is identified. Exam Date/Time: 04/22/2018 13:40 EDT Report IMPRESSION: 1. Cyst in the right ovary, likely physiologic in nature. 2. Intrauterine device within the endometrial canal. 3. Otherwise unremarkable ultrasound appearance of the pelvis. FINAL REPORT Dictated: 04/22/2018 1:54 pm Alvarez Blanchard MD Signed (Electronic Signature): 04/22/2018 1:54 pm Signed by: Alvarez Blanchard MD Technologist: [facility] US Transvaginal Non-OBon US Transvaginal Non-OB Exam Date/Time: 04/22/2018 13:40 EDT Reason for Exam: PELVIC PAIN;Pelvic pain Report STUDY: US Pelvis Non-OB Complete; 04/22/2018 1:40 pm INDICATION: Pelvic pain. COMPARISON: None. ACCESSION NUMBER(S): [id number] ORDERING CLINICIAN: Saúl Harrell TECHNIQUE: Multiple multiplanar static schofield scale, color and spectral waveform sonographic images of the pelvis were obtained. Transabdominal and endovaginal ultrasound was performed. FINDINGS: UTERUS: The uterus is grossly unremarkable in appearance. The uterus measures at 9.3 cm in length and 3.8 x 5.7 cm in AP and transverse diameters. ENDOMETRIUM: An intrauterine device is identified in situ within the endometrial canal. The endometrium measures a thickness of 4 mm, which is normal. RIGHT ADNEXA: The right ovary measures at 4.1 x 2.4 x 2.8 cm. A cyst is seen within the right ovary, measuring at up to 2.3 x 1.4 x 2.0 cm in diameter. Normal-appearing color Doppler flow is seen in the right ovary. No right adnexal mass is identified. LEFT ADNEXA: The left ovary measures at 3.0 x 1.8 x 2.0 cm. Normal-appearing color Doppler flow is seen in the left ovary. No left adnexal masses identified. CUL DE SAC: No free fluid is identified. Exam Date/Time: 04/22/2018 13:40 EDT Report IMPRESSION: 1. Cyst in the right ovary, likely physiologic in nature. 2. Intrauterine device within the endometrial canal. 3. Otherwise unremarkable ultrasound appearance of the pelvis. FINAL REPORT Dictated: 04/22/2018 1:54 pm Alvarez Blanchard MD Signed (Electronic Signature): 04/22/2018 1:54 pm Signed by: Alvarez Blanchard MD Technologist: [facility] Vital Signs Date Time Vital Sign Value Performing Clinician Vance rachel 03-15-2025 15:35-0400 Body temperature 98.1 [degF] Dr. Quinton Blackburn MD Work Phone: [facility] 03-15-2025 15:35-0400 Diastolic blood pressure 78 mm[Hg] Dr. Quinton Blackburn MD Work Phone: [facility] 03-15-2025 15:35-0400 Heart rate 75 /min Dr. Quinton Blackburn MD Work Phone: [facility] 03-15-2025 15:35-0400 Respiratory rate 16 /min Dr. Quinton Blackburn MD Work Phone: [facility] 03-15-2025 15:35-0400 SaO2% (BldA) [Mass fraction] 97 % Dr. Quinton Blackburn MD Work Phone: [facility] 03-15-2025 15:35-0400 Systolic blood pressure 128 mm[Hg] Dr. Quinton Blackburn MD Work Phone: [facility] 03-15-2025 11:01-0400 Body height 160.[address] Quinton Blackburn MD Work Phone: [facility] 03-15-2025 11:01-0400 Body mass index (BMI) [Ratio] 27.3 kg/m2 Dr. Quinton Blackburn MD Work Phone: [facility] 03-15-2025 11:01-0400 Body weight 70.[address] Quinton Blackburn MD Work Phone: [facility] 08-30-2022 09:03-0500 Body temperature 97.7 [degF] Pierce Butt APRN.PATTERN FINISHER Work Phone: [facility] 08-30-2022 09:03-0500 Body weight 66.95 kg Pierce Butt APRN.PATTERN FINISHER Work Phone: [facility] 08-30-2022 09:03-0500 Diastolic blood pressure 84 mm[Hg] Pierce Butt APRN.PATTERN FINISHER Work Phone: [facility] 08-30-2022 09:03-0500 Heart rate 106 /min Pierce Butt APRN.PATTERN FINISHER Work Phone: [facility] 08-30-2022 09:03-0500 Respiratory rate 16 /min Pierce Butt PIN TICKET MACHINE OPERATOR.PATTERN FINISHER Work Phone: [facility] 08-30-2022 09:03-0500 SaO2% (BldA) [Mass fraction] 97 % Pierce Butt PIN TICKET MACHINE OPERATOR.PATTERN FINISHER Work Phone: [facility] 08-30-2022 09:03-0500 Systolic blood pressure 126 mm[Hg] Pierce Butt PIN TICKET MACHINE OPERATOR.PATTERN FINISHER Work Phone: [facility] Encounters Encounter Date Encounter Type Care Provider Facility Start: 03-15-2025 End: 03-15-2025 Emergency department patient visit Dr. Quinton Blackburn MD Work Phone: -Emergency Department Work Phone: Start: 01-18-2025 Encounter for genera l adult medical examination without abnormal findings Quinton Blackburn [facility] Start: 09-08-2024 End: 09-08-2024 ambulatory Quinton Blackburn Facility:[facility] Start: 08-30-2022 End: 08-30-2022 ambulatory BRE BUSTILLOS Facility:[facility] Start: 08-30-2022 End: 08-30-2022 Patient encounter procedure Pierce Butt GOOD.PATTERN FINISHER Work Phone: [facility] Comment on above: Strep throat (Primar y Dx); Sore throat Start: 03-20-2022 End: 03-20-2022 Patient encounter procedure [facility] Start: 10-15-2020 End: 10-16-2020 Evaluation and management of inpatient STEFANIE CNM IFTIKHAR [facility] Start: 09-28-2020 End: 09-28-2020 Patient encounter procedure BRENDA NOLASCO [facility] Start: 08-03-2020 End: 08-03-2020 Patient encounter procedure BRENDA NOLASCO [facility] Start: 12-17-2018 End: 12-18-2018 Patient encounter procedure Saúl Harrell Facility:[facility] Start: 11-19-2018 End: 11-20-2018 Patient encounter procedure Saúl Harrell Facility:[facility] Start: 10-21-2018 End: 10-22-2018 Patient encounter procedure Saúl Harrell Facility:[facility] Start: 10-21-2018 End: 10-22-2018 Patient encounter procedure Saúl Harrell Facility:[facility] Start: 10-21-2018 Patient encounter procedure Facility:[id number] Start: 09-06-2018 Patient encounter procedure Saúl Harrell Facility:[facility] Start: 05-05-2018 End: 05-06-2018 Patient encounter procedure Saúl Harrell Facility:[facility] Start: 04-22-2018 End: 04-23-2018 Patient encounter procedure Saúl Harrell Facility:[facility] Start: 04-22-2018 Patient encounter procedure Facility:[id number] Start: 04-07-2018 End: 04-08-2018 Patient encounter procedure Saúl Harrell Facility:[facility] Start: 02-10-2018 End: 02-11-2018 Patient encounter procedure Saúl Harrell Facility:[facility] Procedures Date Procedure Procedure Detail Performing Clinician Start: 03-15-2025 X-ray of chest, PA a nd lateral views Dr. Quinton Blackburn MD Work Phone: Start: 03-15-2025 D-dimer assay, quantitative Dr. Quinton Blackburn MD Work Phone: Comment on above: NORMAL D-Dimer level (<0.50) indicates no DVT or PE. Start: 03-15-[address] Quinton Blackburn MD Work Phone: Start: 08-30-2022 STREP A MOLECULAR (POC) [facility] Provider History of repair of inguinal hernia S/P right inguinal hernia repair Comment on above: 11/16/17 Plan of Treatment Date Care Activity Detail Author Start: 03-15-2025 End: 03-15-[address] [facility] Start: 03-15-2025 [facility] Start: 02-26-2025 PAP TESTING PAP TESTING [facility] Start: 05-27-2023 Urine microalbumin profile DTAP,TDAP,TD (2 - Td or Tdap) [facility] Start: 06-19-2022 Influenza vaccination INFLUENZA (#1) [facility] Start: 03-05-2022 HPV TESTING HPV TESTING [facility] Start: 10-19-2021 DEPRESSION ASSESSMENT DEPRESSION ASS ESSMENT [facility] Start: 1997 PNEUMOCOCCAL (1 - PCV) PNEUMOCOCCAL (1 - PCV) [facility] Start: 1991 COVID-19 VACCINE (#1) COVID-19 VACCI NE (#1) [facility] Start: 1991 HEPATITIS B (1 of 3 - 3-dose series) HEPATITIS B (1 of 3 - 3-dose series) [facility] ALERE STREP A TEST (AG) ALERE ST REP A TEST (AG) Lab Routine Sore throat Ordered: 08/30/2022 [facility] Work Phone: Comment on above: Ordered: 08/30/2022 Patient Education ED Chest Pain, Uncertain Cause [facility] Work Phone: Patient referral [facility] Work Phone: Immunizations Immunization Date Immunization Notes Care Provider Ginger [facility] 07-04-2014 human papilloma viru s vaccine, quadrivalent Pierce Daquan PIN TICKET MACHINE OPERATOR.PATTERN FINISHER Work Phone: [facility] 05-02-2014 human papilloma viru s vaccine, quadrivalent Pierce Daquan PIN TICKET MACHINE OPERATOR.PATTERN FINISHER Work Phone: [facility] Work Phone: 07-25-2013 influenza virus vaccine, unspecified formulation Pierce Daquan PIN TICKET MACHINE OPERATOR.PATTERN FINISHER Work Phone: [facility] Work Phone: 07-19-2013 Influenza virus vaccine [facility] 05-27-2013 tetanus toxoid, redu jac diphtheria toxoid, and acellular pertussis vaccine, adsorbed Pierce Daquan PIN TICKET MACHINE OPERATOR.PATTERN FINISHER Work Phone: [facility] 08-06-2011 influenza virus vaccine, unspecified formulation Pierce Daquan PIN TICKET MACHINE OPERATOR.PATTERN FINISHER Work Phone: [facility] Payers Date Payer Category Payer Self-pay [id number] 2022 Self-pay [id number] 2019 Unknown [id number] 2018 Private Health Insurance 2018 Medicare 2018 Unknown 2013 Unknown [id number] 1991 Unknown [id number] 2.16. [id number] 1991 Unknown [id number] 2.16. [id number] 1991 Unknown [id number] 2.16.84 0.1.935170.3.579.2.717 1991 Unknown [id number] 2.16.84 0.1.309815.3.579.2.717 1991 Unknown [id number] 2.16.84 0.1.119298.3.579.2.717 1991 Unknown [id number] 2.16.84 0.1.559619.3.579.2.717 1991 Unknown [id number] 2.16.84 0.1.725913.3.579.2.717 1991 Unknown [id number] 2.16.84 0.1.161533.3.579.2.717 1991 Unknown [id number] 2.16.84 0.1.937078.3.579.2.717 1991 Unknown [id number] 2.16.84 0.1.489148.3.579.2.717 1991 Unknown [id number] 2.16.84 0.1.497011.3.579.2.717 1991 Unknown [id number] 2.16.84 0.1.230072.3.579.2.651 1991 Unknown [id number] 2.16.84 0.1.327948.3.579.2.651 1991 Unknown [id number] 2.16.84 0.1.358564.3.579.2.651 Private Health Insurance [id number] Unknown [id number] Unknown [id number] 2.16.8 [id number] Unknown [id number] 2.16.8 [id number] Social History Date Type Detail Facility Start: 03-11-2020 Tobacco smoking stat us PAIS Unknown if ever smoked [facility] Work Phone: Start: 03-11-2020 With Family Dinesh Cain [facility] Start: 1990 Sex Assigned At Female W [facility] Start: 08-30-2022 End: 03-15-2025 Tobacco smoking status PAIS Smokes tobacco daily [facility] History of tobacco use Cigarette Smoker C [facility] Start: 08-30-2022 Tobacco use and exposure Smokeless tobacco non-user [facility] Start: 08-30-2022 Alcohol intake Ex-drinker (finding) [facility] Start: 02-23-2020 End: 02-27-2020 History SDOH Alcohol Binge 2 [facility] Start: 02-23-2020 History SDOH Financial 5 [facility] Start: 02-23-2020 History SDOH Food Worry 1 [facility] Start: 02-23-2020 Education 15 [facility] [facility] Start: 08-30-2022 Tobacco Comment 5 cigarettes a day C [facility] Start: 03-05-2017 Alcohol Comment Socially [facility] Start: 1990 Sex Assigned At Not on file C [facility] Start: 08-20-2022 End: 08-30-2022 Exposure to SARS-CoV-2 (event) Not sure [facility] Medical Equipment Procedure Code Equipment Code Equipment Origin al Text Equipment Identifier Dates MESH,PERFIX FLAT PRESHAPED FDA Start: 11-16-2017 MESH,PERFIX FLAT PRESHAPED FDA Start: 11-16-2017 Mental Status Date Assessment Result Facility 03-15-2025 Cognitive function Voice/Name [facility] Work Phone: Radiology Diagnostic study note 03-15-2025 Note Date & Type Note Facility 03-15-2025 Radiology Diagnostic study note [facility] Imaging Services [address] [place], [place] [address] Chest PA and Lateral MR#: [id number] Acct: [id number] Name: DARA HURTADO Rep #: [id number] : 1990 F 34 From: Sis Gómez MD PCP: Dr. Quinton Blackburn MD Status: REG E R Study:Chest PA and Lateral Date of Exam: 03/15/25 Exam# [id number] Ordering Dr: Obinna Duncan DO EXAM: XR Chest, 2 Views CLINICAL INDICATION: CHEST PAIN TECHNIQUE: Frontal and lateral views of the chest. COMPARISON: No relevant prior studies available. FINDINGS: LUNGS AND PLEURAL SPACES: Unremarkable. No consolidation. No pneumothorax. HEART: Unremarkable. No cardiomegaly. MEDIASTINUM: Unremarkable. Normal mediastinal contour. BONES/JOINTS: Unremarkable. No acute fracture. RAD/Chest PA and Lateral IMPRESSION: No acute cardiopulmonary process. Reading Location: [facility] CC: Dr. Obinna Styles DO; Dr. Quinton Blackburn MD ~ Architectural Renderer: Signed [facility] Progress note 08-30-2022 Note Date & Type Note Facility 08-30-2022 Note HNO ID: [id number] Author: Pierce Butt APRN.PATTERN FINISHER Service: ? Author Type: Nurse Practitioner Type: Progress Notes Filed: 08/30/2022 10:06 AM Note Text: Subjective HPI HPI Dara Hurtado is a 32 year old female who presents today for CC of st, congestion. This started 2 days ago. Has tried otc medication for relief. Symptoms are worsened by nothing. Risk factors no known sick exposures. Denies possibility of being . .Patient presents with: Pain, Throat: Pt reported throat pain rated 9, (RT) ear pain x2 days. PAST MEDICAL HISTORY Diagnosis Date Chlamydia 2010 Treated 2010 Depression Pre-eclampsia PAST SURGICAL HISTORY Procedure Laterality Date HERNIA REPAIR HX 2018 Right Inguinal - Dr. Simon at [facility] Septra [Sulfamethoxazole-Trimethoprim] MEDICATIONS docusate sodium (COLACE ORAL) Take by mouth as needed. (Patient not taking: Reported on 08/30/2022) aspirin, enteric coated (ECOTRIN LOW STRENGTH) 81 mg EC tablet Take 1 tablet by mouth once daily. (Patient not taking: Reported on 08/30/2022) Ybtniitc-Ss-Kvy-Fe-FA ( VITAMIN) tab Take 1 tablet by mouth. (Patient not taking: Reported on 08/30/2022) LYSINE ORAL Take by mouth as needed. FAMILY HISTORY Problem Relation Age of Onset None Mother Cancer Father small intestines No Known Problems Brother No Known Problems Brother No Known Problems Brother No Known Problems Maternal Grandmother Diabetes Maternal Grandfather other (ALS) Maternal Grandfather Diabetes Paternal Grandmother Cancer Paternal Grandfather lung; small intestines/liver No Known Problems Daughter No Known Problems Son Social History Tobacco Use Smoking status: Every Day Years: 12.00 Types: Cigarettes Smokeless tobacco: Never Tobacco comments: 5 cigarettes a day Vaping Use Vaping Use: Never used Substance Use Topics Alcohol use: Not Currently Comment: Socially Drug use: Never Review of Systems Constitutional: Negative for fever. HENT: Positive for congestion and sore throat. Negative for ear pain and nosebleeds. Respiratory: Negative for cough, shortness of breath and wheezing. Musculoskeletal: Negative for neck pain. Skin: Negative for itching and rash. Objective Blood pressure 126/84, pulse 106, temperature 36.5 ?C (97.7 ?F), resp. rate 16, weight 67 kg (147 lb 9.6 oz), last menstrual period 08/19/2022, SpO2 97 %, unknown if currently . Physical Exam Constitutional: General: She is not in acute distress. Appearance: She is not toxic-appearing or diaphoretic. HENT: Head: Normocephalic and atraumatic. Nose: Nose normal. Mouth/Throat: Lips: Zeigler. Mouth: Mucous membranes are moist. Pharynx: Uvula midline. Posterior oropharyngeal erythema present. No pharyngeal swelling, oropharyngeal exudate or uvula swelling. Tonsils: Tonsillar exudate present. 2+ on the right. 2+ on the left. Pulmonary: Effort: Pulmonary effort is normal. No accessory muscle usage or respiratory distress. Neurological: Mental Status: She is alert and oriented to person, place, and time. ASSESSMENT/PLAN: 1. Strep throat - ICD9: 034.0, ICD10: J02.0 (primary diagnosis) - suspect strep - Alere Strep Test pos, no culture pending - antibiotic as written - Discussed supportive care treatment with fluids, rest and analgesia. - The patient should follow up in 3-5 days if symptoms persist or worsen - CEPHALEXIN 500 MG CAPSULE - PREDNISONE 20 MG TABLET 2. Sore throat - ICD9: 462, ICD10: J02.9 As above. - ALERE STREP A TEST (AG) Pierce Butt APRN.JAYCOB [facility] History of Present illness Narrative 08-30-2022 Pierce Butt APRN.JAYCOB - 08/30/2022 9:06 AM EST Note Date & Type Note Facility 08-30-2022 History of Presen t illness Narrative Subjective HPI HPI Dara Hurtado is a 32 year old female who presents today for CC of st, congestion. This started 2 days ago. Has tried otc medication for relief. Symptoms are worsened by nothing. Risk factors no known sick exposures. Denies possibility of being . .Patient presents with: Pain, Throat: Pt reported throat pain rated 9, (RT) ear pain x2 days. PAST MEDICAL HISTORY Diagnosis Date Chlamydia 2010 Treated 2010 Depression Pre-eclampsia PAST SURGICAL HISTORY Procedure Laterality Date HERNIA REPAIR HX 2018 Right Inguinal - Dr. Simon at [facility] Septra [Sulfamethoxazole-Trimethoprim] MEDICATIONS docusate sodium (COLACE ORAL) Take by mouth as needed. (Patient not taking: Reported on 08/30/2022) aspirin, enteric coated (ECOTRIN LOW STRENGTH) 81 mg EC tablet Take 1 tablet by mouth once daily. (Patient not taking: Reported on 08/30/2022) Mudhfxfy-Mu-Bey-Fe-FA ( VITAMIN) tab Take 1 tablet by mouth. (Patient not taking: Reported on 08/30/2022) LYSINE ORAL Take by mouth as needed. FAMILY HISTORY Problem Relation Age of Onset None Mother Cancer Father small intestines No Known Problems Brother No Known Problems Brother No Known Problems Brother No Known Problems Maternal Grandmother Diabetes Maternal Grandfather other (ALS) Maternal Grandfather Diabetes Paternal Grandmother Cancer Paternal Grandfather lung; small intestines/liver No Known Problems Daughter No Known Problems Son Social History Tobacco Use Smoking status: Every Day Years: 12.00 Types: Cigarettes Smokeless tobacco: Never Tobacco comments: 5 cigarettes a day Vaping Use Vaping Use: Never used Substance Use Topics Alcohol use: Not Currently Comment: Socially Drug use: Never Review of Systems Constitutional: Negative for fever. HENT: Positive for congestion and sore throat. Negative for ear pain and nosebleeds. Respiratory: Negative for cough, shortness of breath and wheezing. Musculoskeletal: Negative for neck pain. Skin: Negative for itching and rash. Objective Blood pressure 126/84, pulse 106, temperature 36.5 C (97.7 F), resp. rate 16, weight 67 kg (147 lb 9.6 oz), last menstrual period 08/19/2022, SpO2 97 %, unknown if currently . Physical Exam Constitutional: General: She is not in acute distress. Appearance: She is not toxic-appearing or diaphoretic. HENT: Head: Normocephalic and atraumatic. Nose: Nose normal. Mouth/Throat: Lips: Zeigler. Mouth: Mucous membranes are moist. Pharynx: Uvula midline. Posterior oropharyngeal erythema present. No pharyngeal swelling, oropharyngeal exudate or uvula swelling. Tonsils: Tonsillar exudate present. 2+ on the right. 2+ on the left. Pulmonary: Effort: Pulmonary effort is normal. No accessory muscle usage or respiratory distress. Neurological: Mental Status: She is alert and oriented to person, place, and time. ASSESSMENT/PLAN: 1. Strep throat - ICD9: 034.0, ICD10: J02.0 (primary diagnosis) - suspect strep - Alere Strep Test pos, no culture pending - antibiotic as written - Discussed supportive care treatment with fluids, rest and analgesia. - The patient should follow up in 3-5 days if symptoms persist or worsen - CEPHALEXIN 500 MG CAPSULE - PREDNISONE 20 MG TABLET 2. Sore throat - ICD9: 462, ICD10: J02.9 As above. - ALERE STREP A TEST (AG) Pierce Butt APRN.JAYCOB documented in this encounter [facility] History of Past illness Narrative 03-26-2013 Note Date & Type Note Facility 03-26-2013 History of Past i llness Narrative Problem Noted Date Resolved Date Supervision of other normal 03/26/2013 12/30/2019 Overview: Gender surprise with uncertain dates 01/08/2013 0 07/11/2013 Overview: 01/08/2013Patient has a history of irregular menses every 5-6 weeks. She cannot recall if her last menses was in September or October. Discussed with Dr. Patricia Dimas and she will see patient today to do an ultrasound for dating purposes. Tobacco use in 01/08/2013 020 Overview: 02/23/2020Pt smokes 5 cigarettes a day down from 15 cigarettes a day. Discussed risks of smoking during . Advised pt to quit. TKRN General counseling for prescription of oral cont raceptives 02/04/2012 01/08/2013 Supervision of normal first 02/26/2011 08/28/2011 documented as of this encounter (statuses as of 08/30/2022) [facility] Evaluation note Note Date & Type Note Facility Evaluation note No assessment information availa ble [facility] Work Phone: Evaluation note Note Date & Type Note Facility Evaluation note Diagnosis Strep throat- Primary Streptococcal sore throat Sore throat Acute pharyngitis documented in this encounter [facility] Discharge instructions Note Date & Type Note Facility Hospital Discharge instructions Additional Instructions At this point in time, no clear reason for your chest pain. Follow-up with your primary care physician. Return back to ED if symptoms change or worsen. May be secondary to anxiety and stress. [facility] Work Phone: Reason for referral (narrative) Note Date & Type Note Facility Reason for referral (narrative) No reason for referral information available [facility] Work Phone: Summary Purpose Family History No Family History Records Found Relationship Condition Age at Onset Recorded Date/T magdalena grandfather Malignant neoplasm of colon Unknown father Malignant neoplasm of colon Unknown Advance Directives No Advanced Directives Records Found Advance Directive Response Recorded Date/ Time Living Will No March 11, 2020 1 2:03pm Power of Measurement Analyst No March 11, 2020 12:03pm Advance Directive Response Recorded Date/ Time Do you have a Healthcare Power of Measurement Analyst? No March 15, 2025 11:00am Chief Complaint and Reason for Visit Chief Complaint Admit Date chest pain March 15, 2025 11:00 am Additional Source Comments INFORMATION SOURCE (unrecogn ized section and content) DATE CREATED AUTHOR 10/23/2018 [facility] DATE CREATED AUTHOR AUTHOR'S ORGANIZ ATION 11/04/2018 [facility] DATE CREATED AUTHOR AUTHOR'S ORGANIZ ATION 12/19/2018 [facility] DATE CREATED AUTHOR AUTHOR'S ORGANIZ ATION 10/17/2020 [facility] DATE CREATED AUTHOR AUTHOR'S ORGANIZ ATION 08/30/2022 [facility] DATE CREATED AUTHOR AUTHOR'S ORGANIZ ATION 03/23/2025 [facility] Goals (unrecognized section and content) Goals may be documented in a n alternate sectionGoals may be documented in an alternate section Source Comments (unrecognize d section and content) In the event this informatio n is protected by the Federal Confidentiality of Alcohol and Drug Abuse Patient Records regulations: The Federal rules restrict any use of the information to criminally investigate or prosecute any alcohol or drug abuse patient.[facility] Reason for Visit (unrecogniz ed section and content) Reason Comments Pain, Throat Pt reported throat p ain rated 9, (RT) ear pain x2 days. Care Teams (unrecognized sec tion and content) Managing Broker Relationship Specialty Start Date End Date Bre Bustillos MD PCP - General Family Medicine 02/25/16 Team Status: Active Member Role Status Dates Dr. Quinton Blackburn MD Primary Care Provider Active Team Status: Inactive Member Role Status Dates Dr. Quinton Blackburn MD Primary Care Provider Active Start: March 15, 2025 End: March 15, 2025 Dr. Obinna Klusty-Lis , DO Emergency Provider Activ e Start: March 15, 2025 End: March 15, 2025 FOR RECORDS PERTAINING TO PATIENTS WHO ARE OR HAVE BEEN ENROLLED IN A CHEMICAL DEPENDENCY/SUBSTANCEABUSE PROGRAM, SOME INFORMATION MAY BE OMITTED. This clinical summary was aggregated from multiple sources. Caution should be exercised in using it in the provision of clinical care. This summary normalizes information from multiple sources, and as a consequence, information in this document may materially change the coding, format and clinical context of patient data. In addition, data may be omitted in some cases. CLINICAL DECISIONS SHOULD BE BASED ON THE PRIMARY CLINICAL RECORDS. [facility] [employer] [facility]. provides no warranty or guarantee of the accuracy or completeness of information in this document.
[2025-09-15 10:17] LABS: Anion Gap 9 (5-15); BUN 10 mg/dL (4-19); BUN/Creat Ratio 17.3 RATIO (10-20); Calcium,Total 8.7 mg/dL (7.6-11.0); Carbon Dioxide 24.2 mmol/L (21.0-32.0); Chloride 106 mmol/L (98-108); Glucose 90 mg/dL (70-99); Potassium 4.6 mmol/L (3.3-5.1)
[2025-09-15 12:39] LABS: Cholesterol 156 mg/dL (<=200); Low Density Lipoprotein Calc. 85 mg/dL; Triglycerides 63 mg/dL; Very Low Density Lipoprotein 13 mg/dL (5-40); cholesterol:hdl ratio screen 2.66
== END | disposition home or self-care (01) ==
LOC: MTLAB 08:57
PROVIDERS: Nurse Practitioner Family; PCP Family Medicine; Referring Provider Family Medicine; Visit Provider Family Medicine
DX: Z13.220 Encounter for screening for lipoid disorders (principal); Z13.1 Encounter for screening for diabetes mellitus
CPT/HCPCS: 36415; 80048; 80061

== ENCOUNTER → 2025-10-18 | Outpatient (CLI) | payer OTHER, SELFPAY ==
[2025-10-23 09:08] LABS: Mumps Antibody,IgG > 300.0 AU/mL (Immune >10.9); QNTFERON TB Mitogen Value > 10.00 IU/mL (.); QNTFERON TB Nil Value 0.11 IU/mL (.); QNTFERON TB1+ Ag Value 0.16 IU/mL (.); QNTFERON TB2+ Ag Value 0.11 IU/mL (.); QNTIFERON TB Positive Criteria Negative (Negative); V-Zoster IgG (Immunity) Reactive (Non Reactive)
== END | disposition home or self-care (01) ==
PROVIDERS: PCP Family Medicine; Visit Provider Nurse Practitioner Family
DX: Z01.84 Encounter for antibody response examination (principal)
CPT/HCPCS: 36415; 86480; 86706; 86735; 86762; 86765; 86787